=== PATIENT | male | born 1930 | race Hispanic/Latino ===

== ENCOUNTER 2017-05-26 01:35 | Inpatient (IN) | payer MEDICARE ==
--- NOTE | 2017-05-26 01:43 | C.PDOC ---
Time Seen by Provider: 05/26/17 01:42 Chief Complaint (Nursing): Weakness/Neurological Deficit Past Medical History - Medical History PMH: Cardia Arrhythmia Denies: Depression - [facility] Procedures CONTR CEREBR ARTERIOGRAM (10/14/03) INJECT/INFUSE NEC (12/04/12) MAGNETIC RESONANCE IMAGING OF BRAIN AND BRAIN STEM (10/14/03) NEBULIZER THERAPY (12/04/12) - Social History Hx Alcohol Use: Yes (drinks beer) Hx Substance Use: No Disposition Counseled Patient/Family Regarding: Studies Performed, Diagnosis - Disposition Referrals: Jean Carlos Talavera DO [Primary Care Provider] - Disposition Time: 01:43
--- NOTE | 2017-05-26 01:43 | C.PDOC ---
History Of Present Illness brought from CT for change in mental status. Some time around 11 pm , they've noticed that pt is more confused than baseline and not moving right side. THe NH denied any fall or trauma. Ini the Ed pt moves right foot/leg, but not right arm Time Seen by Provider: 05/26/17 01:42 Chief Complaint (Nursing): Weakness/Neurological Deficit History Per: EMS History/Exam Limitations: clinical condition Onset/Duration Of Symptoms: Hrs (4) Current Symptoms Are (Timing): Still Present Severity: Moderate Pain Scale Rating Of: 4 Past Medical History Reviewed: Historical Data, Nursing Documentation, Vital Signs Vital Signs: Last Vital Signs Temp 98.3 F 05/26/17 01:42 Pulse 97 H 05/26/17 02:27 Resp 8 L 05/26/17 02:27 BP 108/77 05/26/17 02:27 Pulse Ox 94 L 05/26/17 02:51 - Medical History PMH: Cardia Arrhythmia Denies: Depression - [facility] Procedures CONTR CEREBR ARTERIOGRAM (10/14/03) INJECT/INFUSE NEC (12/04/12) MAGNETIC RESONANCE IMAGING OF BRAIN AND BRAIN STEM (10/14/03) NEBULIZER THERAPY (12/04/12) Family History: States: No Known Family Hx - Social History Hx Alcohol Use: Yes (drinks beer) Hx Substance Use: No Review Of Systems Review Of Systems: ROS cannot be obtained secondary to pt's inabilty to answer questions. Physical Exam - Physical Exam Appears: Non-toxic, No Acute Distress Skin: Warm, Dry Head: Normacephalic Eye(s): bilateral: Other (blind) Oral Mucosa: Moist Neck: Supple Chest: Symmetrical Cardiovascular: Rhythm Regular Respiratory: No Rales, No Rhonchi, No Wheezing Gastrointestinal/Abdominal: Soft, No Tenderness, No Distention Back: Normal Inspection Extremity: Normal ROM Extremity: Bilateral: Atraumatic, Normal Color And Temperature Pulses: Left Dorsalis Pedis: Normal, Right Dorsalis Pedis: Normal Neurological/Psych: Slow To Respond With Command, Other (right arm paralysis) Disoriented To: Place, Time Gait: Unable To Assess ED Course And Treatment - Laboratory Results Result Diagrams: 05/26/17 02:06 05/26/17 02:06 ECG: Interpreted By Me, Viewed By Me ECG Rhythm: Sinus Rhythm (101), R BBB O2 Sat by Pulse Oximetry: 94 Pulse Ox Interpretation: Normal - Radiology CXR: Interpreted by Me, Viewed By Me Progress Note: 2:30 pt now moving his right arm Critical Care Time - Critical Care Note Total Time (in mins): 30 Documented critical care: time excludes all time spent performing seperately billable procedures. NIHSS Stroke Scale - Date/Time Evaluation Performed Date Performed: 05/26/17 Time Performed: 01:44 When Was NIHSS Performed: Baseline - How Severe is the Stroke Level of Consciousness: 0=Alert LOC to Questions: 0=Both comments correct LOC to commands: 0=Obeys both correctly Best Gaze: 1=Partial gaze palsy Visual: 0=No visual loss (pt blind) Facial: 0=Normal Motor Arm - Left: 0=No drift Motor Arm - Right: 3=No effort against gravity (falls immediately) Motor Leg - Left: 0=No drift Motor Leg - Right: 1=Drift before 5 sec Limb Ataxia: 0=Absent Sensory: 0=Normal Best Language: 1=Mild to moderate aphasia Dysarthia: 1=Mild to moderate slurring (unchanged) Extinction & Inattention (Neglect): 0=Normal, no object Score: 7 rTPA Inclusion/Exclusion - Refusal of Treatment Patient Refused Treatment: No - Inclusion Criteria for Altepase Patient is 18 years or Older: Yes The Clinical Diagnosis of Ischemic Stroke That is Causing a Potentially Disabling Neurological Deficit: Yes Time of Onset is Well Established to be Less Than 270 Minute Before Treatment Would Begin: No Risk/Benefit Discussed With Patient/Family Member Present: No - Exclusion Criteria for Altepase Uncontrolled Hypertension at Time of Treatment (Systolic BP above 185 or Diastolic BP above 110 mmHg): No Active Internal Bleeding: No Known Bleeding Diathesis Including but Not Limited to: Platelets Below 100,000/ mm,PTT Above 40 sec After Heparin Use, Current Use of Oral Anitcoagulant With INR Greater Than 1.7 or PT Greater Than 15 secs: No Evidence of an Intracranial Hemorrhage: No Evidence of Major Acute Infarct With Signs Greater Than 1/3 MCA Territory: No Suspicion of Subarachnoid Hemorrhage on Pretreatment Evaluation Even if CT Head Negative For Hemorrhage: No - Warning to TPA With Conditions Condition: Rapid Improvement Disposition Discussed With : Jean Carlos Talavera Comment: accepted the pt on his service and took over the care at 3AM Doctor Will See Patient In The: Hospital Counseled Patient/Family Regarding: Studies Performed, Diagnosis - Disposition Referrals: Jean Carlos Talavera DO [Primary Care Provider] - Disposition: HOSPITALIZED Disposition Time: 01:43 Condition: GUARDED Forms: [facility] (Estonian) - Clinical Impression Clinical Impression: TIA (transient ischemic attack) Decision To Admit - Pt Status Changed To: Hospital Disposition Of: Inpatient - Admit Certification Admit to Inpatient:: After my assessment, the patient will require hospitalization for at least two midnights. This is because of the severity of symptoms shown, intensity of services needed, and/or the medical risk in this patient being treated as an outpatient. - InPatient: Physician Admission Certification: I certify that this patient requires 2 or more midnights of care for the following reason:: After my assessment, the patient will require hospitalization for at least two midnights. This is because of the severity of symptoms shown, intensity of services needed, and/or the medical risk in this patient being treated as an outpatient. - . Bed Request Type: Telemetry Admitting Physician: Jean Carlos Talavera Patient Diagnosis: TIA (transient ischemic attack)
[2017-05-26 01:57] VITALS: BMI 22.0
--- NOTE | 2017-05-26 02:01 | CT ---
EXAM: CT Head Without Intravenous Contrast CLINICAL HISTORY: 87 years old, male; Signs and symptoms; Alteration of consciousness; Additional info: Code stroke TECHNIQUE: Axial computed tomography images of the head/brain without intravenous contrast. All CT scans at this facility use one or more dose reduction techniques, viz.: automated exposure control; ma/kV adjustment per patient size (including targeted exams where dose is matched to indication; i.e. head); or iterative reconstruction technique. COMPARISON: No relevant prior studies available. FINDINGS: Brain: Moderate atrophy. No intracranial hemorrhage. No mass. Few scattered foci of decreased attenuation within periventricular/subcortical white matter. No definite edema. Ventricles: No hydrocephalus. Bones/joints: No acute fracture. Soft tissues: Unremarkable. Vasculature: Atherosclerotic disease of intracranial arteries. Sinuses: No acute sinusitis. Mastoid air cells: Probable postsurgical changes of left mastoid. No mastoid effusion. Orbits: Unremarkable as visualized. IMPRESSION: 1. Nonspecific white matter changes. Acute infarction may be CT occult within first 24 hours. If a focal deficit persists, consider followup CT or MRI for further evaluation. 2. Incidental/non-acute findings are described above.
[2017-05-26 02:10] LABS: BASO % 0.2 % (0.0-2.0); EOS % 0.1 % (0.0-4.0); HEMOGLOBIN 15.6 g/dL (12.0-18.0); LYMPH # 0.8 K/uL (1.0-4.3); LYMPH % 4.9 % (20.0-40.0); MEAN CELL VOLUME 96.2 fL (80.0-94.0); MEAN CORPUSCULAR HEMOGLOBIN 33.1 pg (27.0-31.0); MEAN CORPUSCULAR HGB CONC 34.4 g/dL (33.0-37.0); MONO # 0.9 K/uL (0.0-0.8); MONO % 5.7 % (0.0-10.0); NEUT # 13.9 K/uL (1.8-7.0); NEUT % 89.1 % (50.0-75.0); PLATELET COUNT 281 K/uL (130-400); RBC 4.72 Mil/uL (4.40-5.90); RED CELL DISTRIBUTION WIDTH 14.4 % (11.5-14.5); WHITE BLOOD COUNT 15.6 K/uL (4.8-10.8)
[2017-05-26 02:20] LABS: INR 1.1; PROTHROMBIN TIME 11.9 SECONDS (9.7-12.2)
[2017-05-26 02:23] LABS: ALBUMIN 3.9 g/dL (3.5-5.0); ALT/SGPT 48 U/L (21-72); AST/SGOT 33 U/L (17-59); BLOOD UREA NITROGEN 23 mg/dL (9-20); CALCIUM 8.9 mg/dl (8.6-10.4); GFR AFRICAN-AMERICAN > 60; GFR NON-AFRICAN AMERICAN > 60; HDL CHOLESTEROL 59 mg/dL (30-70)
[2017-05-26 02:34] LABS: LDL CHOLESTEROL 177 mg/dL (0-129)
[2017-05-26 02:47] LABS: BANDS 1 % (0-2); LYMPHOCYTE 6 % (20-40); MONOCYTE 7 % (0-10); NEUTROPHIL 86 % (50-75); PLATELET ESTIMATE NORMAL (NORMAL); TOTAL CELLS COUNTED 100
[2017-05-26 03:26] LABS: SPERM URINE OCC /hpf; SQUAMOUS EPITHIAL < 1 /hpf (0-5); URINE BACTERIA OCC (<OCC); URINE BILIRUBIN NEGATIVE (NEGATIVE); URINE BLOOD NEGATIVE (NEGATIVE); URINE CLARITY Clear (Clear); URINE COLOR Yellow (YELLOW); URINE GLUCOSE (UA) NORMAL (Normal); URINE LEUKOCYTE ESTERASE NEG Leu/uL (Negative); URINE NITRATE NEGATIVE (NEGATIVE); URINE PROTEIN NEGATIVE (NEGATIVE); URINE UROBILINOGEN NORMAL mg/dL (0.2-1.0)
[2017-05-26 08:34] LABS: BASO % 0.2 % (0.0-2.0); EOS % 0.1 % (0.0-4.0); HEMOGLOBIN 15.5 g/dL (12.0-18.0); LYMPH # 1.1 K/uL (1.0-4.3); LYMPH % 8.4 % (20.0-40.0); MEAN CELL VOLUME 97.5 fL (80.0-94.0); MEAN CORPUSCULAR HEMOGLOBIN 33.1 pg (27.0-31.0); MEAN CORPUSCULAR HGB CONC 33.9 g/dL (33.0-37.0); MEAN PLATELET VOLUME 8.6 fL (7.2-11.7); MONO # 1.1 K/uL (0.0-0.8); MONO % 8.4 % (0.0-10.0); NEUT % 82.9 % (50.0-75.0); PLATELET COUNT 286 K/uL (130-400); RBC 4.68 Mil/uL (4.40-5.90); RED CELL DISTRIBUTION WIDTH 14.8 % (11.5-14.5); WHITE BLOOD COUNT 13.3 K/uL (4.8-10.8)
[2017-05-26 08:38] LABS: ALBUMIN 3.8 g/dL (3.5-5.0); ALT/SGPT 42 U/L (21-72); AST/SGOT 29 U/L (17-59); BLOOD UREA NITROGEN 22 mg/dL (9-20); CALCIUM 8.2 mg/dl (8.6-10.4); GFR AFRICAN-AMERICAN > 60; GFR NON-AFRICAN AMERICAN > 60
[2017-05-26] MEDS ORDERED: Dextrose 5%/0.45% NS 1,000 ML IV SCH (09:30)
[2017-05-26 09:42] LABS: LYMPHOCYTE 6 % (20-40); MONOCYTE 6 % (0-10); NEUTROPHIL 87 % (50-75); PLATELET ESTIMATE NORMAL (NORMAL); REACTIVE LYMPHOCYTES 1 % (0-0); TOTAL CELLS COUNTED 100
--- NOTE | 2017-05-26 09:54 | RAD ---
HISTORY: CVA COMPARISON: No prior. FINDINGS: LUNGS: The lungs are well inflated and clear. PLEURA: No significant pleural effusion identified, no pneumothorax apparent. CARDIOVASCULAR: Normal. OSSEOUS STRUCTURES: No significant abnormalities. VISUALIZED UPPER ABDOMEN: Normal. OTHER FINDINGS: None. IMPRESSION: No active pulmonary disease.
[2017-05-26] MEDS ORDERED: Pantoprazole 40 mg EC Tab PO SCH (10:00)
[2017-05-26] MEDS ORDERED: Enoxaparin 40 mg Syringe SC SCH (10:00)
[2017-05-26] MEDS ORDERED: Pneumococcal 23-Valent Vaccine IM ONE (10:00)
[2017-05-26] MEDS: Sodium Chloride 0.45% 1,000 ML IV SCH (14:38)
--- NOTE | 2017-05-26 14:38 | CP.PCM.CON ---
History of Present Illness - History of Present Illness History of Present Illness: COSULT DICTATED [place] HEMISPHERIC DYSFUNCTION - LEFT MCA STROKE Vs BLEED NEEDS REPEAT CAT MRI/CAROTID/EEG/ECHO/VERÓNICA ASA/STATIN/ARB NS IV KEEP MAP 90-100 HEAD END ELEVATION NGT DVT PROPHYLAXIS CARDIO TO SEE Past Patient History - Infectious Disease Hx of Infectious Diseases: None - Tetanus Immunizations Tetanus Immunization: Unknown - Past Social History Smoking Status: Unknown If Ever Smoked - CARDIAC Hx Cardiac Disorders: Yes - PULMONARY Hx Respiratory Disorders: No - NEUROLOGICAL Other/Comment: syncopal episode 22 yrs ago - HEENT 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", right ear hearing loss - RENAL Hx Chronic Kidney Disease: No - ENDOCRINE/METABOLIC Hx Endocrine Disorders: No - HEMATOLOGICAL/ONCOLOGICAL Hx Blood Disorders: No Hx Cancer: (denies prostate ca) - INTEGUMENTARY Hx Dermatological Problems: No - MUSCULOSKELETAL/RHEUMATOLOGICAL Hx Falls: Yes - GASTROINTESTINAL Other/Comment: esophagitis, gastritis, gas, uses stool softeners - GENITOURINARY/GYNECOLOGICAL Hx Prostate Problems: Yes (denies ca, had prostate sx 2 months ago) Other/Comment: dribbling since prostate sx when coughing or laughing - PSYCHIATRIC Hx Depression: No Hx Substance Use: No - SURGICAL HISTORY Hx Surgeries: No Other/Comment: left hip replacement 2000 - ANESTHESIA Hx Anesthesia: Yes Hx Anesthesia Reactions: No Meds Allergies/Adverse Reactions: Allergies Allergy/AdvReac Type Severity Reaction Status Date / Time No Known Allergies Allergy Verified 05/26/17 01:41 - Medications Medications: Current Medications Aspirin (Aspirin Chewable) 81 mg PO DAILY [facility] Last Admin: 05/26/17 10:05 Dose: Not Given Docusate Sodium (Colace) 100 mg PO DAILY [facility] Last Admin: 05/26/17 10:05 Dose: Not Given Enoxaparin Sodium (Lovenox) 40 mg SC DAILY [facility] Last Admin: 05/26/17 10:17 Dose: 40 mg Enoxaparin Sodium (Lovenox) 30 mg SC Q12 [facility] Ceftriaxone Sodium 1 gm/ (Dextrose) 100 mls @ 50 mls/30 min IVPB Q24H [facility] Sodium Chloride (Sodium Chloride 0.45%) 1,000 mls @ 72 mls/hr IV .[id number] [facility] Losartan Potassium (Cozaar) 25 mg PO DAILY [facility] Pantoprazole Sodium (Protonix Ec Tab) 40 mg PO DAILY [facility] Last Admin: 05/26/17 10:06 Dose: Not Given Rosuvastatin Calcium (Crestor) 10 mg PO [facility] Results - Vital Signs Recent Vital Signs: Last Vital Signs Temp 97.6 F 05/26/17 07:45 Pulse 89 05/26/17 07:45 Resp 18 05/26/17 07:45 BP 134/83 05/26/17 07:45 Pulse Ox 95 05/26/17 07:45 - Labs Result Diagrams: 05/26/17 08:15 05/26/17 08:15 Labs: Laboratory Results - last 24 hr 05/26/17 05/26/17 05/26/17 01:39 01:58 02:06 WBC 15.6 H RBC 4.72 Hgb 15.6 Hct 45.4 MCV 96.2 H MCH 33.1 H MCHC 34.4 RDW 14.4 Plt Count 281 MPV 8.0 Neut % (Auto) 89.1 H Lymph % (Auto) 4.9 L Collin % (Auto) 5.7 Eos % (Auto) 0.1 Baso % (Auto) 0.2 Neut # 13.9 H Lymph # 0.8 L Collin # 0.9 H Eos # 0.0 Baso # 0.0 Neutrophils % (Manual) 86 H Band Neutrophils % 1 Lymphocytes % (Manual) 6 L Reactive Lymphs % Monocytes % (Manual) 7 Platelet Estimate Normal RBC Morphology PT INR APTT Sodium Potassium Chloride Carbon Dioxide Anion Gap BUN Creatinine Est GFR ( Amer) Est GFR (Non-Af Amer) POC Glucose (mg/dL) 149 H Random Glucose Hemoglobin A1c Calcium Total Bilirubin AST ALT Alkaline Phosphatase Troponin I Total Protein Albumin Globulin Albumin/Globulin Ratio Triglycerides Cholesterol LDL Cholesterol Direct HDL Cholesterol Urine Color Yellow Urine Clarity Clear Urine pH 5.0 Ur Specific Cory 1.020 Urine Protein Negative Urine Glucose (UA) Normal Urine Ketones Negative Urine Blood Negative Urine Nitrate Negative Urine Bilirubin Negative Urine Urobilinogen Normal Ur Leukocyte Esterase Neg Urine WBC (Auto) 2 Urine RBC (Auto) 4 H Ur Squamous Epith Cells < 1 Urine Bacteria Occ H Urine Sperm (Auto) Occ Blood Type Antibody Screen 05/26/17 05/26/17 05/26/17 02:06 02:06 02:06 WBC RBC Hgb Hct MCV MCH MCHC RDW Plt Count MPV Neut % (Auto) Lymph % (Auto) Collin % (Auto) Eos % (Auto) Baso % (Auto) Neut # Lymph # Collin # Eos # Baso # Neutrophils % (Manual) Band Neutrophils % Lymphocytes % (Manual) Reactive Lymphs % Monocytes % (Manual) Platelet Estimate RBC Morphology PT 11.9 INR 1.1 APTT 33 Sodium 132 Potassium 4.2 Chloride 98 Carbon Dioxide 26 Anion Gap 12 BUN 23 H Creatinine 1.1 Est GFR ( Amer) > 60 Est GFR (Non-Af Amer) > 60 POC Glucose (mg/dL) Random Glucose 140 H Hemoglobin A1c Calcium 8.9 Total Bilirubin 0.5 AST 33 ALT 48 Alkaline Phosphatase 137 H D Troponin I < 0.0120 Total Protein 7.9 Albumin 3.9 Globulin 3.9 Albumin/Globulin Ratio 1.0 Triglycerides 88 Cholesterol 253 H LDL Cholesterol Direct 177 H HDL Cholesterol 59 Urine Color Urine Clarity Urine pH Ur Specific Cory Urine Protein Urine Glucose (UA) Urine Ketones Urine Blood Urine Nitrate Urine Bilirubin Urine Urobilinogen Ur Leukocyte Esterase Urine WBC (Auto) Urine RBC (Auto) Ur Squamous Epith Cells Urine Bacteria Urine Sperm (Auto) Blood Type B POSITIVE Antibody Screen Negative 05/26/17 05/26/17 05/26/17 02:07 08:15 08:15 WBC 13.3 H RBC 4.68 Hgb 15.5 Hct 45.6 MCV 97.5 H MCH 33.1 H MCHC 33.9 RDW 14.8 H Plt Count 286 MPV 8.6 Neut % (Auto) 82.9 H Lymph % (Auto) 8.4 L Collin % (Auto) 8.4 Eos % (Auto) 0.1 Baso % (Auto) 0.2 Neut # 11.0 H Lymph # 1.1 Collin # 1.1 H Eos # 0.0 Baso # 0.0 Neutrophils % (Manual) 87 H Band Neutrophils % Lymphocytes % (Manual) 6 L Reactive Lymphs % 1 H Monocytes % (Manual) 6 Platelet Estimate Normal RBC Morphology Normal PT INR APTT Sodium 133 Potassium 3.9 Chloride 97 L Carbon Dioxide 25 Anion Gap 14 BUN 22 H Creatinine 1.1 Est GFR ( Amer) > 60 Est GFR (Non-Af Amer) > 60 POC Glucose (mg/dL) Random Glucose 122 H Hemoglobin A1c 5.8 Calcium 8.2 L Total Bilirubin 0.4 AST 29 ALT 42 Alkaline Phosphatase 121 Troponin I Total Protein 7.5 Albumin 3.8 Globulin 3.7 Albumin/Globulin Ratio 1.0 Triglycerides Cholesterol LDL Cholesterol Direct HDL Cholesterol Urine Color Urine Clarity Urine pH Ur Specific Cory Urine Protein Urine Glucose (UA) Urine Ketones Urine Blood Urine Nitrate Urine Bilirubin Urine Urobilinogen Ur Leukocyte Esterase Urine WBC (Auto) Urine RBC (Auto) Ur Squamous Epith Cells Urine Bacteria Urine Sperm (Auto) Blood Type Antibody Screen
--- NOTE | 2017-05-26 14:49 | CT ---
PROCEDURE: CT HEAD WITHOUT CONTRAST. HISTORY: left MCA stroke - ?? bleed COMPARISON: None available. TECHNIQUE: Axial computed tomography images were obtained through the head/brain without intravenous contrast. Radiation dose: Total exam DLP = 1001.34 mGy-cm. This CT exam was performed using one or more of the following dose reduction techniques: Automated exposure control, adjustment of the mA and/or kV according to patient size, and/or use of iterative reconstruction technique. FINDINGS: HEMORRHAGE: No intracranial hemorrhage. BRAIN: There is asymmetric low attenuation in the left bunn radiata, basal ganglia, anterior limb of internal capsule and external capsule. There are moderate chronic microangiopathic changes. There is no mass, mass effect or abnormal extra-axial fluid collection. There are coarse atherosclerotic calcifications in the cavernous carotid arteries. VENTRICLES: There is moderate age-related global parenchymal volume loss and proportionate enlargement of the ventricles and cortical sulci. CALVARIUM: The skull base and calvarium are normal. PARANASAL SINUSES: Predominantly clear. MASTOID AIR CELLS: The right mastoid air cells are clear. Status post left mastoidectomy. There is cerumen in both external auditory canals. OTHER FINDINGS: None. IMPRESSION: Acute left MCA territory infarction involving the bunn radiata, basal ganglia, anterior limb of internal capsule and external capsule. No evidence of intracranial hemorrhage. Critical findings were discussed with neurologist Dr. Ben Em on 05/26/2017 at 2:45 p.m.
[2017-05-26] MEDS ORDERED: Enalaprilat 2.5 MG/2 ML IV ONE (17:32)
[2017-05-26 17:57] LABS: FREE T4 1.52 ng/dL (0.78-2.19)
[2017-05-26 18:47] LABS: FOLATE 11.3 ng/mL
--- NOTE | 2017-05-26 20:56 | HP ---
HISTORY OF PRESENT ILLNESS: He was sent in from [facility] with new onset right-sided weakness and flaccidity. He is sent to the emergency room here. He is an 87-year-old man I have seen at [facility] for the past few weeks for physical therapy. He is a carey of the [facility] later [facility]. He is an 87-year-old white male with new onset right-sided weakness and flaccidity and he stopped talking. He is nonverbal and is weak. PAST MEDICAL HISTORY: He has a history of scleroderma, he is blind, GERD, and for the most part he is bedridden. SOCIAL HISTORY: He still drinks alcohol. He does not smoke. No substance abuse. FAMILY HISTORY: No known family history. REVIEW OF SYSTEMS: I cannot obtain review of system as he is nonverbal, although I feel like he is trying to talk. PHYSICAL EXAMINATION: VITAL SIGNS: He has 97.6 temperature, 89 pulse, 134/83 blood pressure, 18 respiratory rate, 95% O2 sat on room air. HEENT: His head is atraumatic and normocephalic. He is alert. His eyes are open. He is blind. He is just nonverbal. Mouth is dry. SKIN: Warm and dry. NECK: Supple. HEART: Regular rate. LUNGS: Decreased breath sounds, but clear to auscultation. ABDOMEN: Soft and nontender. Positive bowel sounds. EXTREMITIES: The right side is flaccid. He does have a history of cellulitis and ulcers of the both legs that are much improved with little remnants of the ulcers that are left in his extremities. He has got right arm paralysis, now he cannot move the right leg. LABORATORY DATA: He has a 15.6 white count, 15.6 hemoglobin, 45.4 hematocrit with 281 platelets. Sodium 132, potassium 4.2, BUN 23, creatinine 1.1, sugar is 140. Heart is regular rhythm at 101, right bundle branch block. Chest x-ray is pending. He comes in with most probable stroke, right-sided weakness, nonverbal. He also has a 15,000 white count. He is on Rocephin. The urine with occasional bacteria. White count went up to 15.6 from 13.3. He is here for elevated white count, stroke, right-sided weakness. We will have a consult with Neurology. He is on ceftriaxone, IV fluids. We are awaiting speech evaluation, physical therapy. We will watch him very closely. This is a history and physical on Jc Rosales who has a new onset stroke, right-sided weakness, waiting another CAT scan probably tomorrow. I am also going to get the MRI. Jean Carlos Talavera DO
[2017-05-26] MEDS: Enoxaparin 30 mg Syringe SC SCH (21:08)
--- NOTE | 2017-05-26 21:28 | CP.PCM.CON ---
History of Present Illness - History of Present Illness History of Present Illness: 87 yo male with h/o dementia, resident in [place], presents to with altered mental status from baseline and right sided hemiplegia. Patient is unable to provide much history, information obtained from chart. Admission CT head showed an acute left MCA stroke. NSR on EKG, but telemtery shows PAF. 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", right ear hearing loss - RENAL Hx Chronic Kidney Disease: No - ENDOCRINE/METABOLIC Hx Endocrine Disorders: No - HEMATOLOGICAL/ONCOLOGICAL Hx Blood Disorders: No Hx Cancer: (denies prostate ca) - INTEGUMENTARY Hx Dermatological Problems: No - MUSCULOSKELETAL/RHEUMATOLOGICAL Hx Falls: Yes - GASTROINTESTINAL Other/Comment: esophagitis, gastritis, gas, uses stool softeners - GENITOURINARY/GYNECOLOGICAL Hx Prostate Problems: Yes (denies ca, had prostate sx 2 months ago) Other/Comment: dribbling since prostate sx when coughing or laughing - PSYCHIATRIC Hx Depression: No Hx Substance Use: No - SURGICAL HISTORY Hx Surgeries: No Other/Comment: left hip replacement 2000 - ANESTHESIA Hx Anesthesia: Yes Hx Anesthesia Reactions: No Meds Allergies/Adverse Reactions: Allergies Allergy/AdvReac Type Severity Reaction Status Date / Time No Known Allergies Allergy Verified 05/26/17 01:41 - Medications Medications: Current Medications Aspirin (Aspirin Chewable) 81 mg PO DAILY [facility] Last Admin: 05/26/17 10:05 Dose: Not Given Docusate Sodium (Colace) 100 mg PO DAILY [facility] Last Admin: 05/26/17 10:05 Dose: Not Given Enoxaparin Sodium (Lovenox) 40 mg SC DAILY [facility] Last Admin: 05/26/17 10:17 Dose: 40 mg Enoxaparin Sodium (Lovenox) 30 mg SC Q12 [facility] Last Admin: 05/26/17 21:08 Dose: 30 mg Ceftriaxone Sodium 1 gm/ (Dextrose) 100 mls @ 50 mls/30 min IVPB Q24H [facility] Sodium Chloride (Sodium Chloride 0.45%) 1,000 mls @ 72 mls/hr IV .[id number] [facility] Last Admin: 05/26/17 14:38 Dose: 72 mls/hr Losartan Potassium (Cozaar) 25 mg PO DAILY [facility] Pantoprazole Sodium (Protonix Ec Tab) 40 mg PO DAILY [facility] Last Admin: 05/26/17 10:06 Dose: Not Given Rosuvastatin Calcium (Crestor) 10 mg PO HS STA Stop: 05/26/17 21:22 Rosuvastatin Calcium (Crestor) 20 mg PO HS [facility] Physical Exam - Constitutional Appears: No Acute Distress - Head Exam Head Exam: ATRAUMATIC, NORMOCEPHALIC - Eye Exam Pupil Exam: PERRL - Respiratory Exam Respiratory Exam: Clear to Auscultation Bilateral, NORMAL BREATHING PATTERN - Cardiovascular Exam Cardiovascular Exam: REGULAR RHYTHM, +S1, +S2. absent: JVD, Systolic Murmur - GI/Abdominal Exam GI & Abdominal Exam: Soft. absent: Tenderness - Neurological Exam Additional comments: Aphasic, right hemiplegia Results - Vital Signs Recent Vital Signs: Last Vital Signs Temp 97.8 F 05/26/17 15:15 Pulse 80 05/26/17 15:47 Resp 18 05/26/17 15:15 BP 166/95 H 05/26/17 17:46 Pulse Ox 97 05/26/17 15:15 - Labs Result Diagrams: 05/26/17 08:15 05/26/17 08:15 Labs: Laboratory Results - last 24 hr 05/26/17 05/26/17 05/26/17 01:39 01:58 02:06 WBC 15.6 H RBC 4.72 Hgb 15.6 Hct 45.4 MCV 96.2 H MCH 33.1 H MCHC 34.4 RDW 14.4 Plt Count 281 MPV 8.0 Neut % (Auto) 89.1 H Lymph % (Auto) 4.9 L Iron % (Auto) 5.7 Eos % (Auto) 0.1 Baso % (Auto) 0.2 Neut # 13.9 H Lymph # 0.8 L Iron # 0.9 H Eos # 0.0 Baso # 0.0 Neutrophils % (Manual) 86 H Band Neutrophils % 1 Lymphocytes % (Manual) 6 L Reactive Lymphs % Monocytes % (Manual) 7 Platelet Estimate Normal RBC Morphology PT INR APTT Sodium Potassium Chloride Carbon Dioxide Anion Gap BUN Creatinine Est GFR ( Amer) Est GFR (Non-Af Amer) POC Glucose (mg/dL) 149 H Random Glucose Hemoglobin A1c Calcium Total Bilirubin AST ALT Alkaline Phosphatase Troponin I Total Protein Albumin Globulin Albumin/Globulin Ratio Triglycerides Cholesterol LDL Cholesterol Direct HDL Cholesterol Vitamin B12 Folate Free T4 TSH 3rd Generation Urine Color Yellow Urine Clarity Clear Urine pH 5.0 Ur Specific [place] 1.020 Urine Protein Negative Urine Glucose (UA) Normal Urine Ketones Negative Urine Blood Negative Urine Nitrate Negative Urine Bilirubin Negative Urine Urobilinogen Normal Ur Leukocyte Esterase Neg Urine WBC (Auto) 2 Urine RBC (Auto) 4 H Ur Squamous Epith Cells < 1 Urine Bacteria Occ H Urine Sperm (Auto) Occ RPR Blood Type Antibody Screen 05/26/17 05/26/17 05/26/17 02:06 02:06 02:06 WBC RBC Hgb Hct MCV MCH MCHC RDW Plt Count MPV Neut % (Auto) Lymph % (Auto) Iron % (Auto) Eos % (Auto) Baso % (Auto) Neut # Lymph # Iron # Eos # Baso # Neutrophils % (Manual) Band Neutrophils % Lymphocytes % (Manual) Reactive Lymphs % Monocytes % (Manual) Platelet Estimate RBC Morphology PT 11.9 INR 1.1 APTT 33 Sodium 132 Potassium 4.2 Chloride 98 Carbon Dioxide 26 Anion Gap 12 BUN 23 H Creatinine 1.1 Est GFR ( Amer) > 60 Est GFR (Non-Af Amer) > 60 POC Glucose (mg/dL) Random Glucose 140 H Hemoglobin A1c Calcium 8.9 Total Bilirubin 0.5 AST 33 ALT 48 Alkaline Phosphatase 137 H D Troponin I < 0.0120 Total Protein 7.9 Albumin 3.9 Globulin 3.9 Albumin/Globulin Ratio 1.0 Triglycerides 88 Cholesterol 253 H LDL Cholesterol Direct 177 H HDL Cholesterol 59 Vitamin B12 Folate Free T4 TSH 3rd Generation Urine Color Urine Clarity Urine pH Ur Specific [place] Urine Protein Urine Glucose (UA) Urine Ketones Urine Blood Urine Nitrate Urine Bilirubin Urine Urobilinogen Ur Leukocyte Esterase Urine WBC (Auto) Urine RBC (Auto) Ur Squamous Epith Cells Urine Bacteria Urine Sperm (Auto) RPR Blood Type B POSITIVE Antibody Screen Negative 05/26/17 05/26/17 05/26/17 02:07 08:15 08:15 WBC 13.3 H RBC 4.68 Hgb 15.5 Hct 45.6 MCV 97.5 H MCH 33.1 H MCHC 33.9 RDW 14.8 H Plt Count 286 MPV 8.6 Neut % (Auto) 82.9 H Lymph % (Auto) 8.4 L Iron % (Auto) 8.4 Eos % (Auto) 0.1 Baso % (Auto) 0.2 Neut # 11.0 H Lymph # 1.1 Iron # 1.1 H Eos # 0.0 Baso # 0.0 Neutrophils % (Manual) 87 H Band Neutrophils % Lymphocytes % (Manual) 6 L Reactive Lymphs % 1 H Monocytes % (Manual) 6 Platelet Estimate Normal RBC Morphology Normal PT INR APTT Sodium 133 Potassium 3.9 Chloride 97 L Carbon Dioxide 25 Anion Gap 14 BUN 22 H Creatinine 1.1 Est GFR ( Amer) > 60 Est GFR (Non-Af Amer) > 60 POC Glucose (mg/dL) Random Glucose 122 H Hemoglobin A1c 5.8 Calcium 8.2 L Total Bilirubin 0.4 AST 29 ALT 42 Alkaline Phosphatase 121 Troponin I Total Protein 7.5 Albumin 3.8 Globulin 3.7 Albumin/Globulin Ratio 1.0 Triglycerides Cholesterol LDL Cholesterol Direct HDL Cholesterol Vitamin B12 Folate Free T4 TSH 3rd Generation Urine Color Urine Clarity Urine pH Ur Specific [place] Urine Protein Urine Glucose (UA) Urine Ketones Urine Blood Urine Nitrate Urine Bilirubin Urine Urobilinogen Ur Leukocyte Esterase Urine WBC (Auto) Urine RBC (Auto) Ur Squamous Epith Cells Urine Bacteria Urine Sperm (Auto) RPR Blood Type Antibody Screen 05/26/17 05/26/17 05/26/17 16:11 17:23 17:23 WBC RBC Hgb Hct MCV MCH MCHC RDW Plt Count MPV Neut % (Auto) Lymph % (Auto) Iron % (Auto) Eos % (Auto) Baso % (Auto) Neut # Lymph # Iron # Eos # Baso # Neutrophils % (Manual) Band Neutrophils % Lymphocytes % (Manual) Reactive Lymphs % Monocytes % (Manual) Platelet Estimate RBC Morphology PT INR APTT Sodium Potassium Chloride Carbon Dioxide Anion Gap BUN Creatinine Est GFR ( Amer) Est GFR (Non-Af Amer) POC Glucose (mg/dL) 104 Random Glucose Hemoglobin A1c 5.8 Calcium Total Bilirubin AST ALT Alkaline Phosphatase Troponin I Total Protein Albumin Globulin Albumin/Globulin Ratio Triglycerides Cholesterol LDL Cholesterol Direct HDL Cholesterol Vitamin B12 695 Folate 11.3 Free T4 TSH 3rd Generation Urine Color Urine Clarity Urine pH Ur Specific [place] Urine Protein Urine Glucose (UA) Urine Ketones Urine Blood Urine Nitrate Urine Bilirubin Urine Urobilinogen Ur Leukocyte Esterase Urine WBC (Auto) Urine RBC (Auto) Ur Squamous Epith Cells Urine Bacteria Urine Sperm (Auto) RPR Blood Type Antibody Screen 05/26/17 05/26/17 05/26/17 17:23 17:24 21:10 WBC RBC Hgb Hct MCV MCH MCHC RDW Plt Count MPV Neut % (Auto) Lymph % (Auto) Iron % (Auto) Eos % (Auto) Baso % (Auto) Neut # Lymph # Iron # Eos # Baso # Neutrophils % (Manual) Band Neutrophils % Lymphocytes % (Manual) Reactive Lymphs % Monocytes % (Manual) Platelet Estimate RBC Morphology PT INR APTT Sodium Potassium Chloride Carbon Dioxide Anion Gap BUN Creatinine Est GFR ( Amer) Est GFR (Non-Af Amer) POC Glucose (mg/dL) 114 H Random Glucose Hemoglobin A1c Calcium Total Bilirubin AST ALT Alkaline Phosphatase Troponin I Total Protein Albumin Globulin Albumin/Globulin Ratio Triglycerides Cholesterol LDL Cholesterol Direct HDL Cholesterol Vitamin B12 Folate Free T4 1.52 TSH 3rd Generation 1.00 Urine Color Urine Clarity Urine pH Ur Specific [place] Urine Protein Urine Glucose (UA) Urine Ketones Urine Blood Urine Nitrate Urine Bilirubin Urine Urobilinogen Ur Leukocyte Esterase Urine WBC (Auto) Urine RBC (Auto) Ur Squamous Epith Cells Urine Bacteria Urine Sperm (Auto) RPR Nonreactive Blood Type Antibody Screen - EKG Data EKG comments: EKG, my review, NSR, RBBB Telemetry as reviewed by me, paroxysmal AF with RVR Assessment & Plan (1) Acute cardioembolic stroke Assessment and Plan: In setting of PAF Permissive HTN Increase rosuvastatin to high intensity dose of 20 mg, LDL 177 F/u neurology recommendations Status: Acute (2) Paroxysmal atrial fibrillation Assessment and Plan: Currently in NSR Will need life long antoicoagulation CHADS Vasc score 3 Will defer to neurology if able to start anticoagulation now Status: Acute (3) Mixed hyperlipidemia Assessment and Plan: Will change rosuvastatin to 20 mg Status: Acute
--- NOTE | 2017-05-27 01:45 | CON ---
DATE: 05/26/2017 REASON FOR THE CONSULTATION: Right-sided weakness. CHIEF COMPLAINT: Patient was brought into [facility] last night from the shelter. Patient was transferred to the [facility] with a history of change in mental status with right-sided weakness. From neurologic point of view, I was called into evaluate him for further management. HISTORY OF PRESENT ILLNESS: Mr. Jc Rosales is an 87-year-old shelter resident brought to [facility] around 1 o'clock with a history of change in mental status with right-sided weakness. Following evaluation at the emergency room, patient did show some improvement of his right side arm. With that reason, patient did not get the t-PA and he did have a CT of the head and the patient was transferred to the floor for further management. At present, patient has been showing a left lateral gaze preponderance with facia twisted to his left side and right dense hemiplegia. Speech is globally aphasic which could not be able to understand at present. PAST MEDICAL HISTORY: Hypertension, dyslipidemia. REVIEW OF SYSTEM: Twelve-point review of systems had been reviewed. From neuro, a new weakness on his right side. MEDICATIONS: Aspirin, Colace, Lovenox, Protonix, IV fluid, D5. PHYSICAL EXAMINATION: VITAL SIGNS: Blood pressure 134/83, mean artery pressure of 100, respiratory rate 16, temperature afebrile, pulse rate 89. NECK: Supple. No carotid bruits. HEART: Sound seems to be tachycardic. EXTREMITIES: Right leg externally rotated. NEUROLOGIC EXAMINATION: Patient's left lateral gaze preponderance. Could not able to blink on to the visual threat on his right side. Pupils are sluggishly reactive to light. Facial flattening of the right side with global aphasia. Poor gag. Right dense hemiplegia. Deep tendon reflexes: Biceps, brachialis, and triceps 1+ on the right side; left side absent. Both plantars are upgoing. Sensory examination: Responded to pain symmetrically on both sides; however, somewhat decreased to response on his right side to compare with the left side. WORKUP: CT of the head shows diffuse atrophy with periventricular ischemic changes. Blood Workup: WBC 13.3, hemoglobin 15.5, hematocrit 45.6, platelet 286. PT 11.9, INR 1.1, PTT 33. Sodium 133, potassium 3.9, chloride 97, bicarbonate 25, BUN 22, GFR more than 60, glucose 122. Hemoglobin A1c 5.8. Calcium 8.2. Alkaline phosphatase 121, cholesterol 253, LDL 177, HDL 59. Urinalysis shows 4+ rbc's. CONCLUSION: Mr. Jc Rosales is presenting with dense dominant hemispheric dysfunction manifesting with the left lateral gaze preponderance, right homonymous hemianopsia, right nasolabial fold flattening, poor gag, right dense hemiplegia, all consistent with left MCA territory dysfunction. This is probably a cardioembolic event versus emboligenesis from the carotid artery stenosis. RECOMMENDATIONS: 1. Repeat CT of the head because of abrupt change in neuro status. Patient should have CT of the head to rule out bleed. 2. Patient should be on IV fluid to keep the mean artery pressure around 100. 3. We will keep the head in elevation. 4. NG feeding. Medication can be started; aspirin, statin, and angiotensin receptor blockers if the CT of the head is negative for the bleed. 5. Patient should go for MRI of the brain, carotid Doppler, echocardiogram, and possible transesophageal echocardiogram as well. Patient should be evaluated by skein straightener also. 6. Patient should get a DVT prophylaxis. Patient will be followed closely while he is in the hospital. Manav Contreras MD
[2017-05-27] MEDS ORDERED: cefTRIAXone IV 1 gm in Dextros 1 GM in Dextrose 5% In Water 50 ML IVPB SCH (03:15)
[2017-05-27] MEDS: Sodium Chloride 0.45% 1,000 ML IV SCH (03:44)
--- NOTE | 2017-05-27 06:59 | CP.PCM.CON ---
<MistiMiroslava - Last Filed: 05/27/17 11:55> History of Present Illness - History of Present Illness History of Present Illness: GI Consult note for Dr. Rojas Reason for consult: PEG placement Guardian: Tk Gonzales please note history as per charts secondary to patient condition 87 year old male PMHx HTN, dysplipidemia, scleroderma, GERD, blindness, "spinal infx" presented to ED on 05/26 for AMS and inability to move right side of body. Patient sent from [facility] where he has been for physical therapy. Head CT showed acute L MCA territory infarction involving the bunn radiata, basal ganglia, anterior limb of internal capsule and external capsule with no evidence of intracranial hemorrhage. Patient failed speech/ swallow eval and kept NPO with placement of NGTube. GI consulted for PEG placement. Overnight patient tolerated tube feeds of Lucerna 1.5 at 30cc/hr with 30cc residual. Patient follows some commands and is alert and responsive but complete ROS unobtainable secondary to global aphasia. PMHx: HTN, dysplipidemia, scleroderma, GERD, blindness, "spinal infx" PSurgHx: prostate surgery [unknown procedure] and hip replacement Meds: pls see chart ALL: NKDA FamHx: as per chart noncontributory SocialHx: as per chart denies tobacco and drug use with occasional drinking PProcedures: unable to confirm- will speak to guardian Review of Systems - Review of Systems Systems not reviewed;Unavailable: Acuity of Condition Past Patient History - Infectious Disease Hx of Infectious Diseases: None - Tetanus Immunizations Tetanus Immunization: Unknown - Past Social History Smoking Status: Unknown If Ever Smoked - CARDIAC Hx Cardiac Disorders: Yes - PULMONARY Hx Respiratory Disorders: No - NEUROLOGICAL Other/Comment: syncopal episode 22 yrs ago - HEENT 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", right ear hearing loss - RENAL Hx Chronic Kidney Disease: No - ENDOCRINE/METABOLIC Hx Endocrine Disorders: No - HEMATOLOGICAL/ONCOLOGICAL Hx Blood Disorders: No Hx Cancer: (denies prostate ca) - INTEGUMENTARY Hx Dermatological Problems: No - MUSCULOSKELETAL/RHEUMATOLOGICAL Hx Falls: Yes - GASTROINTESTINAL Other/Comment: esophagitis, gastritis, gas, uses stool softeners - GENITOURINARY/GYNECOLOGICAL Hx Prostate Problems: Yes (denies ca, had prostate sx 2 months ago) Other/Comment: dribbling since prostate sx when coughing or laughing - PSYCHIATRIC Hx Depression: No Hx Substance Use: No - SURGICAL HISTORY Hx Surgeries: No Other/Comment: left hip replacement 2000 - ANESTHESIA Hx Anesthesia: Yes Hx Anesthesia Reactions: No Meds Allergies/Adverse Reactions: Allergies Allergy/AdvReac Type Severity Reaction Status Date / Time No Known Allergies Allergy Verified 05/26/17 01:41 - Medications Medications: Current Medications Aspirin (Aspirin Chewable) 81 mg PO DAILY [facility] Last Admin: 05/26/17 10:05 Dose: Not Given Docusate Sodium (Colace) 100 mg PO DAILY [facility] Last Admin: 05/26/17 10:05 Dose: Not Given Enoxaparin Sodium (Lovenox) 30 mg SC Q12 [facility] Last Admin: 05/26/17 21:08 Dose: 30 mg Ceftriaxone Sodium 1 gm/ (Dextrose) 100 mls @ 50 mls/30 min IVPB Q24H [facility] Last Admin: 05/27/17 03:44 Dose: 50 mls/30 min Sodium Chloride (Sodium Chloride 0.45%) 1,000 mls @ 72 mls/hr IV .[id number] [facility] Last Admin: 05/27/17 03:44 Dose: 72 mls/hr Losartan Potassium (Cozaar) 25 mg PO DAILY [facility] Pantoprazole Sodium (Protonix Ec Tab) 40 mg PO DAILY [facility] Last Admin: 05/26/17 10:06 Dose: Not Given Rosuvastatin Calcium (Crestor) 20 mg PO [facility] Physical Exam - Constitutional Appears: Chronically Ill - Head Exam Head Exam: ATRAUMATIC, NORMOCEPHALIC - Eye Exam Eye Exam: absent: Conjunctival injection, Scleral icterus Additional comments: left lateral gaze - ENT Exam ENT Exam: Mucous Membranes Dry Additional comments: NGT in place with feeds at 30cc/hr - Respiratory Exam Respiratory Exam: NORMAL BREATHING PATTERN. absent: Accessory Muscle Use, Respiratory Distress - Cardiovascular Exam Cardiovascular Exam: Tachycardia - GI/Abdominal Exam GI & Abdominal Exam: Soft. absent: Distended, Firm, Guarding, Rigid, Tenderness - Extremities Exam Extremities exam: Positive for: pedal pulses present - Neurological Exam Neurological exam: Alert Additional comments: alert and responds to command [ie lifted left arm slightly when asked] aphasic - Skin Skin Exam: Dry, Intact, Warm Results - Vital Signs Recent Vital Signs: Last Vital Signs Temp 98.6 F 05/26/17 23:05 Pulse 94 H 05/26/17 23:05 Resp 20 05/26/17 23:05 BP 134/78 05/26/17 23:05 Pulse Ox 95 05/26/17 23:05 - Labs Result Diagrams: 05/27/17 07:06 05/27/17 07:06 Labs: Laboratory Results - last 24 hr 05/26/17 05/26/17 05/26/17 02:07 08:15 08:15 WBC 13.3 H RBC 4.68 Hgb 15.5 Hct 45.6 MCV 97.5 H MCH 33.1 H MCHC 33.9 RDW 14.8 H Plt Count 286 MPV 8.6 Neut % (Auto) 82.9 H Lymph % (Auto) 8.4 L [place] % (Auto) 8.4 Eos % (Auto) 0.1 Baso % (Auto) 0.2 Neut # 11.0 H Lymph # 1.1 [place] # 1.1 H Eos # 0.0 Baso # 0.0 Neutrophils % (Manual) 87 H Lymphocytes % (Manual) 6 L Reactive Lymphs % 1 H Monocytes % (Manual) 6 Platelet Estimate Normal RBC Morphology Normal Sodium 133 Potassium 3.9 Chloride 97 L Carbon Dioxide 25 Anion Gap 14 BUN 22 H Creatinine 1.1 Est GFR ( Amer) > 60 Est GFR (Non-Af Amer) > 60 POC Glucose (mg/dL) Random Glucose 122 H Hemoglobin A1c 5.8 Calcium 8.2 L Total Bilirubin 0.4 AST 29 ALT 42 Alkaline Phosphatase 121 Total Protein 7.5 Albumin 3.8 Globulin 3.7 Albumin/Globulin Ratio 1.0 Vitamin B12 Folate Free T4 TSH 3rd Generation RPR 05/26/17 05/26/17 05/26/17 16:11 17:23 17:23 WBC RBC Hgb Hct MCV MCH MCHC RDW Plt Count MPV Neut % (Auto) Lymph % (Auto) [place] % (Auto) Eos % (Auto) Baso % (Auto) Neut # Lymph # [place] # Eos # Baso # Neutrophils % (Manual) Lymphocytes % (Manual) Reactive Lymphs % Monocytes % (Manual) Platelet Estimate RBC Morphology Sodium Potassium Chloride Carbon Dioxide Anion Gap BUN Creatinine Est GFR ( Amer) Est GFR (Non-Af Amer) POC Glucose (mg/dL) 104 Random Glucose Hemoglobin A1c 5.8 Calcium Total Bilirubin AST ALT Alkaline Phosphatase Total Protein Albumin Globulin Albumin/Globulin Ratio Vitamin B12 695 Folate 11.3 Free T4 TSH 3rd Generation RPR 05/26/17 05/26/17 05/26/17 17:23 17:24 21:10 WBC RBC Hgb Hct MCV MCH MCHC RDW Plt Count MPV Neut % (Auto) Lymph % (Auto) [place] % (Auto) Eos % (Auto) Baso % (Auto) Neut # Lymph # [place] # Eos # Baso # Neutrophils % (Manual) Lymphocytes % (Manual) Reactive Lymphs % Monocytes % (Manual) Platelet Estimate RBC Morphology Sodium Potassium Chloride Carbon Dioxide Anion Gap BUN Creatinine Est GFR ( Amer) Est GFR (Non-Af Amer) POC Glucose (mg/dL) 114 H Random Glucose Hemoglobin A1c Calcium Total Bilirubin AST ALT Alkaline Phosphatase Total Protein Albumin Globulin Albumin/Globulin Ratio Vitamin B12 Folate Free T4 1.52 TSH 3rd Generation 1.00 RPR Nonreactive Assessment & Plan - Assessment and Plan (Free Text) Assessment: 7 year old male PMHx HTN, dysplipidemia, scleroderma, GERD, blindness, "spinal infx" presented to ED on 05/26 for AMS and inability to move right side of body. 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 GI consulted for PEG placement Plan: - patient on NGT feeds of Lucerna 1.5 at 30cc/hr tolerating with minimal residual of 30cc overnight - will speak to state guardianship regarding PEG placement - guardian Tk Gonzales has been contacted- awaiting to hear back - continue care as per primary as neurology and will f/u reccs GI will continue to follow Discussed with Dr. Bob Chappell PGY2 <El Rojas Y - Last Filed: 05/27/17 13:01> Meds - Medications Medications: Current Medications Aspirin (Aspirin Chewable) 81 mg PO DAILY [facility] Last Admin: 05/27/17 09:59 Dose: 81 mg Docusate Sodium (Colace) 100 mg PO DAILY [facility] Last Admin: 05/27/17 10:10 Dose: Not Given Enoxaparin Sodium (Lovenox) 30 mg SC Q12 [facility] Last Admin: 05/27/17 10:00 Dose: 30 mg Ceftriaxone Sodium 1 gm/ (Dextrose) 100 mls @ 50 mls/30 min IVPB Q24H [facility] Last Admin: 05/27/17 03:44 Dose: 50 mls/30 min Sodium Chloride (Sodium Chloride 0.9%) 1,000 mls @ 40 mls/hr IV .Q24H [facility] Last Admin: 05/27/17 10:05 Dose: 40 mls/hr Losartan Potassium (Cozaar) 25 mg PO DAILY [facility] Last Admin: 05/27/17 09:59 Dose: 25 mg Pantoprazole Sodium (Protonix Susp) 40 mg PO DAILY [facility] Last Admin: 05/27/17 09:59 Dose: 40 mg Pneumococcal Polyvalent Vaccine (Pneumovax 23 Vaccine) 0.5 ml IM .ONCE ONE Stop: 05/28/17 10:01 Rosuvastatin Calcium (Crestor) 20 mg PO [facility] Results - Vital Signs Recent Vital Signs: Last Vital Signs Temp 98.4 F 05/27/17 07:40 Pulse 92 H 05/27/17 07:40 Resp 20 05/27/17 07:40 BP 123/78 05/27/17 07:40 Pulse Ox 94 L 05/27/17 07:40 - Labs Result Diagrams: 05/27/17 07:06 05/27/17 07:06 Labs: Laboratory Results - last 24 hr 05/26/17 05/26/17 05/26/17 16:11 17:23 17:23 WBC RBC Hgb Hct MCV MCH MCHC RDW Plt Count MPV Sodium Potassium Chloride Carbon Dioxide Anion Gap BUN Creatinine Est GFR ( Amer) Est GFR (Non-Af Amer) POC Glucose (mg/dL) 104 Random Glucose Hemoglobin A1c 5.8 Calcium Total Bilirubin AST ALT Alkaline Phosphatase Total Protein Albumin Globulin Albumin/Globulin Ratio Vitamin B12 695 Folate 11.3 Free T4 TSH 3rd Generation RPR 05/26/17 05/26/17 05/26/17 17:23 17:24 21:10 WBC RBC Hgb Hct MCV MCH MCHC RDW Plt Count MPV Sodium Potassium Chloride Carbon Dioxide Anion Gap BUN Creatinine Est GFR ( Amer) Est GFR (Non-Af Amer) POC Glucose (mg/dL) 114 H Random Glucose Hemoglobin A1c Calcium Total Bilirubin AST ALT Alkaline Phosphatase Total Protein Albumin Globulin Albumin/Globulin Ratio Vitamin B12 Folate Free T4 1.52 TSH 3rd Generation 1.00 RPR Nonreactive 05/27/17 05/27/17 05/27/17 06:26 07:06 07:06 WBC 11.2 H RBC 4.33 L Hgb 14.4 Hct 42.0 MCV 96.9 H MCH 33.2 H MCHC 34.3 RDW 14.7 H Plt Count 273 MPV 8.8 Sodium 131 L Potassium 4.1 Chloride 99 Carbon Dioxide 27 Anion Gap 10 BUN 23 H Creatinine 1.1 Est GFR ( Amer) > 60 Est GFR (Non-Af Amer) > 60 POC Glucose (mg/dL) 109 Random Glucose 108 Hemoglobin A1c Calcium 8.8 Total Bilirubin 0.4 AST 31 ALT 34 Alkaline Phosphatase 110 Total Protein 7.1 Albumin 3.5 Globulin 3.6 Albumin/Globulin Ratio 1.0 Vitamin B12 Folate Free T4 TSH 3rd Generation RPR 05/27/17 11:26 WBC RBC Hgb Hct MCV MCH MCHC RDW Plt Count MPV Sodium Potassium Chloride Carbon Dioxide Anion Gap BUN Creatinine Est GFR ( Amer) Est GFR (Non-Af Amer) POC Glucose (mg/dL) 113 H Random Glucose Hemoglobin A1c Calcium Total Bilirubin AST ALT Alkaline Phosphatase Total Protein Albumin Globulin Albumin/Globulin Ratio Vitamin B12 Folate Free T4 TSH 3rd Generation RPR Attending/Attestation - Attestation I have personally seen and examined this patient.: Yes I have fully participated in the care of the patient.: Yes I have reviewed all pertinent clinical information: Yes Notes (Text): 05/27/17 12:52 I have seen and examined patient with GI fellow and medical office technician. Agree with above documentation with the following additions. In brief, this is a 87 year old male with history of HTN, scleroderma, GERD, hyperlipidemia who was sent to hospital for evaluation of altered mental status and found to have an acute CVA. GI called for possible endoscopic gastrostomy tube placement. Patient himself is not able to participate in meaningful conversation due to recent vascular event and has aphasia. Additional information was obtained via chart review and discussion with nursing staff. Patient noted to have current guardianship under state of [place]. He is able to follow simple commands and move his left extremity when asked, but otherwise there is no reported abdominal pain , nausea, vomiting, fever/chills. He is tolerating NG tube feeding without difficulty. 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 If proper consent for procedure is obtained, will tentatively plan for procedure on . In the meanwhile will continue to observe patient clinical course.
[2017-05-27 07:26] LABS: HEMOGLOBIN 14.4 g/dL (12.0-18.0); MEAN CELL VOLUME 96.9 fL (80.0-94.0); MEAN CORPUSCULAR HEMOGLOBIN 33.2 pg (27.0-31.0); MEAN CORPUSCULAR HGB CONC 34.3 g/dL (33.0-37.0); MEAN PLATELET VOLUME 8.8 fL (7.2-11.7); RBC 4.33 Mil/uL (4.40-5.90); RED CELL DISTRIBUTION WIDTH 14.7 % (11.5-14.5); WHITE BLOOD COUNT 11.2 K/uL (4.8-10.8)
--- NOTE | 2017-05-27 07:35 | RAD ---
HISTORY: NGT COMPARISON: Portable chest 05/06/2017. FINDINGS: LUNGS: No acute infiltrate bilaterally. Left hemidiaphragm again appears slightly elevated. PLEURA: No significant pleural effusion identified, no pneumothorax apparent. CARDIOVASCULAR: Normal. OSSEOUS STRUCTURES: No significant abnormalities. VISUALIZED UPPER ABDOMEN: Normal. OTHER FINDINGS: None. IMPRESSION: No acute infiltrate bilaterally. No pleural effusion or cardiomegaly. Left hemidiaphragm remains mildly elevated.
[2017-05-27 08:16] LABS: ALBUMIN 3.5 g/dL (3.5-5.0); ALT/SGPT 34 U/L (21-72); AST/SGOT 31 U/L (17-59); BLOOD UREA NITROGEN 23 mg/dL (9-20); CALCIUM 8.8 mg/dl (8.6-10.4); GFR AFRICAN-AMERICAN > 60; GFR NON-AFRICAN AMERICAN > 60
[2017-05-27] MEDS: Pantoprazole 40 mg Susp UD PO SCH (09:59)
[2017-05-27] MEDS: Enoxaparin 30 mg Syringe SC SCH ×2 (10:00→22:48)
[2017-05-27] MEDS: Sodium Chloride 0.9% 1,000 ML IV SCH (10:05)
--- NOTE | 2017-05-27 10:41 | PN ---
SUBJECTIVE: I saw Jc resting comfortably in bed. He has a NG tube in, he had IV fluids running plus IV Rocephin. He is nonverbal. His eyes open. He consult with Neurology and Cardiology anticipated, GI for possible PEG tube. MEDICATIONS: He is currently on IV fluids, aspirin, Colace, Cozaar, Crestor, Lovenox, Protonix, Rocephin. He has Vasotec IV running for elevated blood pressure. PHYSICAL EXAMINATION VITAL SIGNS: Right now it is 98.6 temperature, 94 pulse, 134/78 blood pressure, 20 respiratory rate, 95% pulse ox on room air. HEENT: His head is atraumatic and normocephalic. His eyes open. He is nonverbal, will not talk. HEART: Regular rate. LUNGS: Decreased breath sounds, but clear. ABDOMEN: Soft. EXTREMITIES: His right arm is flaccid, cannot move it. LABORATORY DATA: He had 13.3 white count yesterday, waiting for labs from today; 15.5 hemoglobin, 286,000 platelets. He had 114 blood sugar. Urine was clean. Nonreactive RPR. Waiting for labs this morning. We will check labs tomorrow. Speech pathology, swallow evaluation; said he cannot swallow. He is n.p.o. at this time. That is why I think he will need a PEG tube. We will continue . Right leg also is better healing. I think the Rocephin will help that. He is blind, he has got scleroderma and CVA with right-sided weakness. Jean Carlos Talavera DO MTDWilliam
--- NOTE | 2017-05-27 11:17 | VASCLAB ---
PROCEDURE: HISTORY: Carotid occlusion COMPARISON: None available. TECHNIQUE: Grayscale and duplex Doppler evaluation of the cervical carotid and vertebral arteries were performed. The common carotid, carotid bifurcations and cervical Internal Carotid Artery (ICA) and proximal External Carotid Artery (ECA) were evaluated. The vertebral arteries were evaluated for gross patency and flow direction. Report prepared by Macario Hardin, BS, RVT FINDINGS: RIGHT CAROTID ARTERIES: 1. Common Carotid Artery: No flow noted in the right common carotid artery. Maximum Peak Systolic velocity: 0 cm/sec: End-diastolic velocity 0 cm/sec. 2. Carotid Bifurcation: Calcific plaque formation. Maximum Peak Systolic velocity: 0 cm/sec: End-diastolic velocity 0 cm/sec. 3. Internal Carotid Artery: No flow is noted in the right internal carotid artery. plaque description: Calcific 3.1. Proximal Segment: Peak systolic velocity 0 cm/sec: End-diastolic velocity 0 cm/sec - % stenosis [place] 3.2. Middle Segment: Peak systolic velocity 0 cm/sec: End-diastolic velocity 0 cm/sec - % stenosis [place] 3.3. Distal Segment: Peak systolic velocity 0 cm/sec: End-diastolic velocity 0 cm/sec - % stenosis [place] 4. External Carotid Artery: The right external carotid artery flow direction is retrograde. Peak systolic velocity 30 cm/sec 5. ICA/CCA Ratio: LEFT CAROTID ARTERIES: 1. Common Carotid Artery: No significant focal plaque formation of the left common carotid artery. Maximum Peak Systolic velocity: 64 cm/sec: End-diastolic velocity 19 cm/sec. 2. Carotid Bifurcation: Calcific plaque formation. Maximum Peak Systolic velocity: 88 cm/sec: End-diastolic velocity 16 cm/sec. 3. Internal Carotid Artery: Severe plaque formation of the left proximal ICA which does not results in a hemodynamically significant stenosis. Plaque description: Calcific 3.1. Proximal Segment: Peak systolic velocity 61 cm/sec: End-diastolic velocity 19 cm/sec - % stenosis 0-15% 3.2. Middle Segment: Peak systolic velocity 48 cm/sec: End-diastolic velocity 25 cm/sec - % stenosis 0-15% 3.3. Distal Segment: Peak systolic velocity 51 cm/sec: End-diastolic velocity 26 cm/sec - % stenosis 0-15% 4. External Carotid Artery: No significant focal plaque formation. Peak systolic velocity 154 cm/sec 5. ICA/CCA Ratio: 1.4 VERTEBRAL ARTERIES: 1. Right Vertebral Artery: The right vertebral artery flow direction is retrograde. 2. Left Vertebral Artery: The left vertebral artery flow direction is antegrade. OTHER FINDINGS: 1. Right Brachial Blood pressure: mmHg. 2. Left Brachial Blood pressure: mmHg. IMPRESSION: RIGHT: Occlusion of the right internal carotid artery. LEFT: Duplex scan does not suggest hemodynamically significant stenosis of the left extracranial carotid arteries. KERMIT Rivers notified about the findings.
--- NOTE | 2017-05-27 15:08 | CP.PCM.PN ---
Subjective - Date & Time of Evaluation Date of Evaluation: 05/27/17 Time of Evaluation: 15:03 - Subjective Subjective: Pt is confused, mumbles. cannot answer questions Objective - Vital Signs/Intake and Output Vital Signs (last 24 hours): Temp Pulse Resp BP Pulse Ox 98.4 F 92 H 20 123/78 94 L 05/27/17 07:40 05/27/17 07:40 05/27/17 07:40 05/27/17 07:40 05/27/17 07:40 Intake and Output: 05/27/17 05/27/17 06:59 18:59 Intake Total 1410 696 Output Total 100 500 Balance 1310 196 - Medications Medications: Current Medications Aspirin (Aspirin Chewable) 81 mg PO DAILY [facility] Last Admin: 05/27/17 09:59 Dose: 81 mg Docusate Sodium (Colace) 100 mg PO DAILY [facility] Last Admin: 05/27/17 10:10 Dose: Not Given Enoxaparin Sodium (Lovenox) 30 mg SC Q12 [facility] Last Admin: 05/27/17 10:00 Dose: 30 mg Ceftriaxone Sodium 1 gm/ (Dextrose) 100 mls @ 50 mls/30 min IVPB Q24H [facility] Last Admin: 05/27/17 03:44 Dose: 50 mls/30 min Sodium Chloride (Sodium Chloride 0.9%) 1,000 mls @ 40 mls/hr IV .Q24H [facility] Last Admin: 05/27/17 10:05 Dose: 40 mls/hr Losartan Potassium (Cozaar) 25 mg PO DAILY [facility] Last Admin: 05/27/17 09:59 Dose: 25 mg Pantoprazole Sodium (Protonix Susp) 40 mg PO DAILY [facility] Last Admin: 05/27/17 09:59 Dose: 40 mg Pneumococcal Polyvalent Vaccine (Pneumovax 23 Vaccine) 0.5 ml IM .ONCE ONE Stop: 05/28/17 10:01 Rosuvastatin Calcium (Crestor) 20 mg PO [facility] - Labs Labs: 05/27/17 07:06 05/27/17 07:06 PT 11.9 SECONDS (9.7-12.2) 05/26/17 02:06 INR 1.1 05/26/17 02:06 APTT 33 SECONDS (21-34) 05/26/17 02:06 - Constitutional Appears: Older Than Stated Age, Confused, Cachectic - Head Exam Head Exam: ATRAUMATIC - Eye Exam Eye Exam: Normal appearance - ENT Exam ENT Exam: Mucous Membranes Dry - Neck Exam Neck Exam: Full ROM - Respiratory Exam Respiratory Exam: Clear to Ausculation Bilateral - Cardiovascular Exam Cardiovascular Exam: REGULAR RHYTHM - GI/Abdominal Exam GI & Abdominal Exam: Normal Bowel Sounds - Extremities Exam Extremities Exam: Full ROM, Normal Inspection - Back Exam Back Exam: NORMAL INSPECTION - Neurological Exam Neurological Exam: Awake Additional comments: Right sided hemiparesis Assessment and Plan - Assessment and Plan (Free Text) Assessment: 2. Echo reveals normal LV EF, mild 2. Occluded Right carotid not likely source of CVA 3. Pt is in NSR, but brief runs of SVT noted on tele. the runs appear regular probably a regular SVT. 4. If pt's family/guardian wish for pt to have PEG, he is cleared.
[2017-05-28] MEDS: Sodium Chloride 0.9% 1,000 ML IV SCH ×2 (03:21→14:34)
[2017-05-28 06:21] LABS: HEMOGLOBIN 13.7 g/dL (12.0-18.0); MEAN CORPUSCULAR HGB CONC 34.1 g/dL (33.0-37.0); MEAN PLATELET VOLUME 7.6 fL (7.2-11.7); RBC 4.13 Mil/uL (4.40-5.90); RED CELL DISTRIBUTION WIDTH 14.8 % (11.5-14.5); WHITE BLOOD COUNT 11.2 K/uL (4.8-10.8)
--- NOTE | 2017-05-28 06:52 | PN ---
DATE: 05/27/2017 TIME OF EVALUATION: 07:15 a.m. NEUROLOGICAL PROBLEM: Acute (left MCA dominant hemisphere) stroke manifesting with dense right hemiplegia with left lateral gaze. PHYSICAL EXAMINATION: VITAL SIGNS: Blood pressure 134/78, mean arterial pressure of 96, respiratory rate 18, temperature afebrile. NEUROLOGIC: The patient responds verbally, trying to speak, could not able to speak out. Significant motor aphasia. Not responding to visual threat on his right side. Tone increased, right side with hemiplegia. There is hyperreflexia on the right side. Left side was trace. Both plantars are upgoing. Responds to pain symmetrically on both sides. WORKUP: CT of the head repeat which confirmed with my clinical examination of left MCA stroke. ASSESSMENT AND PLAN: The patient is on hydration and keeping the mean arterial pressure around 90 to 100. Her head end is elevated. The patient is on nasogastric tube with medication and feeding. The patient should continue deep venous thrombosis prophylaxis and antiplatelets as recommended with angiotension receptor blockers and statin. The patient is requested to have MRI of the brain once the questionnaire is filled. The request has been followed. The patient also requested to have a transesophageal echocardiogram and followed by [facility]. Manav Contreras MD
--- NOTE | 2017-05-28 07:56 | CP.PCM.PN ---
<Miroslava Chappell - Last Filed: 05/28/17 14:20> Subjective - Date & Time of Evaluation Date of Evaluation: 05/28/17 Time of Evaluation: 08:00 - Subjective Subjective: PGY2 GI note for Dr. Rojas Patient seen and examined at bedside. Nursing reports patient was afebrile and had no acute events overnight. Patient tolerating NGT feeds @ 45cc/hr with minimal residual. Patient is making urine but has not had a BM yet. Patient seems slightly less responsive than yesterday. Remains globally aphasic. ROS unobtainable secondary to clinical condition. Objective - Vital Signs/Intake and Output Vital Signs (last 24 hours): Temp Pulse Resp BP Pulse Ox 98.7 F 87 20 114/65 95 05/27/17 23:10 05/27/17 23:10 05/27/17 23:10 05/27/17 23:10 05/27/17 23:10 Intake and Output: 05/28/17 05/28/17 06:59 18:59 Intake Total 1095 Output Total 375 Balance 720 - Medications Medications: Current Medications Aspirin (Aspirin Chewable) 81 mg PO DAILY [facility] Last Admin: 05/27/17 09:59 Dose: 81 mg Docusate Sodium (Colace) 100 mg PO DAILY [facility] Last Admin: 05/27/17 10:10 Dose: Not Given Enoxaparin Sodium (Lovenox) 30 mg SC Q12 [facility] Last Admin: 05/27/17 22:48 Dose: 30 mg Sodium Chloride (Sodium Chloride 0.9%) 1,000 mls @ 40 mls/hr IV .Q24H [facility] Last Admin: 05/28/17 03:21 Dose: 40 mls/hr Ceftriaxone Sodium 1 gm/ (Sodium Chloride) 100 mls @ 100 mls/hr IVPB Q24H [facility] Last Admin: 05/28/17 03:21 Dose: 100 mls/hr Metoprolol Tartrate (Lopressor) 25 mg PO BID [facility] Last Admin: 05/27/17 18:36 Dose: 25 mg Pantoprazole Sodium (Protonix Susp) 40 mg PO DAILY [facility] Last Admin: 05/27/17 09:59 Dose: 40 mg Pneumococcal Polyvalent Vaccine (Pneumovax 23 Vaccine) 0.5 ml IM .ONCE ONE Stop: 05/28/17 10:01 Rosuvastatin Calcium (Crestor) 20 mg PO HS [facility] Last Admin: 05/27/17 22:47 Dose: 20 mg Tobramycin/Dexamethasone (Tobradex 0.3%-0.1% Opht Oint) 0 appl OU QID [facility] - Labs Labs: 05/28/17 06:17 05/27/17 07:06 PT 11.9 SECONDS (9.7-12.2) 05/26/17 02:06 INR 1.1 05/26/17 02:06 APTT 33 SECONDS (21-34) 05/26/17 02:06 - Constitutional Appears: Chronically Ill - Head Exam Head Exam: ATRAUMATIC, NORMOCEPHALIC - Eye Exam Eye Exam: absent: Conjunctival injection, Scleral icterus Additional comments: left lateral gaze - ENT Exam ENT Exam: Mucous Membranes Dry Additional comments: NGT in place at 45cc/hr - Respiratory Exam Respiratory Exam: NORMAL BREATHING PATTERN. absent: Accessory Muscle Use, Respiratory Distress - Cardiovascular Exam Cardiovascular Exam: +S1, +S2. absent: Bradycardia, Tachycardia - GI/Abdominal Exam GI & Abdominal Exam: Soft. absent: Firm, Guarding, Rigid, Tenderness, Organomegaly - Neurological Exam Neurological Exam: Alert. absent: Awake, Oriented x3 Additional comments: aphasic with right sided weakness - Psychiatric Exam Additional comments: unable to assess - Skin Skin Exam: Dry, Intact Assessment and Plan - Assessment and Plan (Free Text) Assessment: 87 year old male PMHx HTN, dysplipidemia, scleroderma, GERD, blindness, "spinal infx" presented to ED on 05/26 for AMS and inability to move right side of body. 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 GI consulted for PEG placement 1. AMS - acute CVA (involving L MCA) 2. HTN 3. Scleroderma 4 GERD 5. Hyperlipidemia 6. Dysphagia 7. Paroxysmal atrial fibrillation Plan: - Patient on NGT feeds of Lucerna 1.5 at 45cc/hr tolerating with minimal residual - Temporary Guardian Brennan contacted and consent obtained for PEG placement in the AM tomorrow. Telephone consent obtained with two nursing witnessed. - Brennan - Continue care as per primary, neurology, and cardiology- will f/u reccs Discussed with Dr. Bob Chappell PGY2 <El Rojas Y - Last Filed: 05/28/17 17:43> Objective - Vital Signs/Intake and Output Vital Signs (last 24 hours): Temp Pulse Resp BP Pulse Ox 97.8 F 73 18 126/74 94 L 05/28/17 15:21 05/28/17 15:30 05/28/17 15:21 05/28/17 15:21 05/28/17 15:21 Intake and Output: 05/28/17 05/28/17 06:59 18:59 Intake Total 1095 860 Output Total 375 200 Balance 720 660 - Medications Medications: Current Medications Aspirin (Aspirin Chewable) 81 mg PO DAILY [facility] Last Admin: 05/28/17 10:55 Dose: 81 mg Docusate Sodium (Colace) 100 mg PO DAILY [facility] Last Admin: 05/28/17 10:55 Dose: 100 mg Enoxaparin Sodium (Lovenox) 30 mg SC Q12 [facility] Last Admin: 05/28/17 10:55 Dose: 30 mg Sodium Chloride (Sodium Chloride 0.9%) 1,000 mls @ 40 mls/hr IV .Q24H [facility] Last Admin: 05/28/17 14:34 Dose: Not Given Ceftriaxone Sodium 1 gm/ (Sodium Chloride) 100 mls @ 100 mls/hr IVPB Q24H [facility] Last Admin: 05/28/17 03:21 Dose: 100 mls/hr Metoprolol Tartrate (Lopressor) 25 mg PO BID [facility] Last Admin: 05/28/17 10:55 Dose: 25 mg Pantoprazole Sodium (Protonix Susp) 40 mg PO DAILY [facility] Last Admin: 05/28/17 10:55 Dose: 40 mg Rosuvastatin Calcium (Crestor) 20 mg PO HS [facility] Last Admin: 05/27/17 22:47 Dose: 20 mg Tobramycin/Dexamethasone (Tobradex 0.3%-0.1% Opht Oint) 0 appl OU QID [facility] Last Admin: 05/28/17 13:46 Dose: Not Given - Labs Labs: 05/28/17 06:17 05/28/17 06:17 PT 11.9 SECONDS (9.7-12.2) 05/26/17 02:06 INR 1.1 05/26/17 02:06 APTT 33 SECONDS (21-34) 05/26/17 02:06 Attending/Attestation - Attestation I have personally seen and examined this patient.: Yes I have fully participated in the care of the patient.: Yes I have reviewed all pertinent clinical information, including history, physical exam and plan: Yes Notes (Text): 05/28/17 17:40 I have seen and examined patient with GI fellow and district medical examiner. No acute events overnight, though he appears more lethargic and less responsive today compared to yesterday. There is no reported abdominal pain, nausea, vomiting. He is tolerating NGT feeding without difficulty. HTN Hyperlipidemia Scleroderma GERD Acute CVA with involvement of L MCA Dysphagia, AMS - Continue with NGT feeding as tolerated - Appreciate cardiology evaluation, patient cleared for endoscopic procedure - Follow up neurology recommendations, repeat CT imaging ordered - Consent for PEG obtained via court appointed guardian, will plan for procedure tomorrow to provide ongoing nutritional support. NPO after midnight.
[2017-05-28 08:09] LABS: ALBUMIN 3.4 g/dL (3.5-5.0); ALT/SGPT 37 U/L (21-72); AST/SGOT 29 U/L (17-59); BLOOD UREA NITROGEN 30 mg/dL (9-20); CALCIUM 8.3 mg/dl (8.6-10.4); GFR AFRICAN-AMERICAN > 60; GFR NON-AFRICAN AMERICAN 58
--- NOTE | 2017-05-28 08:35 | PN ---
DATE: 05/28/2017 TIME OF EVALUATION: 07:00 a.m. NEUROLOGICAL PROBLEM: Dominant hemispheric stroke, MCA territory manifesting with global aphasia and right hemiplegia with left lateral gaze preponderance. PHYSICAL EXAMINATION: VITAL SIGNS: Blood pressure 114/65, mean arterial pressure of 81, respiratory rate 18, temperature 98.7, pulse rate 87, regular. Monitor showed some evidence of SVT. The patient is globally aphasic. This speech is somewhat worsened than yesterday's exam. Yesterday's exam is somewhere how Broca's aphasia at present. The patient is globally aphasic. Still left lateral gaze preponderance, right nasolabial fold flattened, poor gag and right-sided hemiplegia. ASSESSMENT AND PLAN: The patient did have left MCA territory ischemic process. The nature of the neurological examination is worsened than yesterday. Cardiology followup is appreciated. Echocardiogram findings are noted. The patient definitely needs VERÓNICA to further localizing the thromboembologenesis for his cryptogenic stroke. This would help for further prognosis and the treatment point of the view, though he is 87 and bedridden at present. The patient's condition had been discussed with the nurse. I also scheduled him to have CT of the head to assess the stroke process to compare with my previous exam. The patient will be followed closely with you. Manav Contreras MD
--- NOTE | 2017-05-28 09:11 | CT ---
PROCEDURE: CT HEAD WITHOUT CONTRAST. HISTORY: assess the process of mca stroke COMPARISON: Unenhanced head CT 05/26/2017. TECHNIQUE: Axial computed tomography images were obtained through the head/brain without intravenous contrast. Radiation dose: Total exam DLP = 950.15 mGy-cm. This CT exam was performed using one or more of the following dose reduction techniques: Automated exposure control, adjustment of the mA and/or kV according to patient size, and/or use of iterative reconstruction technique. FINDINGS: HEMORRHAGE: No intracranial hemorrhage. BRAIN: Edema pattern has increased at the left basal ganglia and bunn radiata excluding the caudate lobe and is not well appreciated within the mid to posterior left temporal lobe with partial effacement of local sulci appreciated. No midline shift. Some limited effacement of the left lateral ventricle body and frontal horn is likely. No interval edema involving the right cerebral hemisphere or the posterior fossa contents. Diffuse cerebral atrophy chronic microangiopathy are reiterated. VENTRICLES: No hydrocephalus. CALVARIUM: Unremarkable. PARANASAL SINUSES: Unremarkable as visualized. No significant inflammatory changes. MASTOID AIR CELLS: Unremarkable as visualized. No inflammatory changes. OTHER FINDINGS: Nasogastric tube identified entering through the left naries and left nasopharynx. IMPRESSION: MCA infarct in evolution involving the left basal ganglia and bunn radiata which are increased in edema somewhat. Interval edema is now identified involving the left temporal lobe mid to posterior segment with partial effacement of local sulci appreciated. No acute intracranial hemorrhage or midline shift appreciable. Continued clinical and CT follow-up are advised.
[2017-05-28] MEDS ORDERED: Pneumococcal 23-Valent Vaccine IM ONE (10:00)
[2017-05-28] MEDS ORDERED: Influenza Vaccine 60 mcg/0.5 mL SYR (4YR UP) IM ONE (10:00)
[2017-05-28] MEDS: Enoxaparin 30 mg Syringe SC SCH ×2 (10:55→21:50)
[2017-05-28] MEDS: Pantoprazole 40 mg Susp UD PO SCH (10:55)
--- NOTE | 2017-05-28 11:02 | PN ---
DATE: SUBJECTIVE: I saw Jc resting comfortably in bed. There is an NG tube with PEG tube feedings running. He is alert. He does open his eyes a little bit, they are very crusty. I will put him on some TobraDex eyedrops 2 drops 4 times a day for 5 days. He is not talking. He is currently on aspirin, Colace, Crestor, Lopressor, Lovenox, Protonix, Rocephin, IV fluids, and now TobraDex eyedrops for his conjunctivitis. His eyes are open, but they are crusted. PHYSICAL EXAMINATION: VITAL SIGNS: He has a 98.7 temp, 87 pulse, 114/65 blood pressure, 20 respiratory rate, 95% O2 sat on room air. HEENT: His head is atraumatic, normocephalic, but the eyes are both crusted Throat is moist. NECK: Supple. HEART: Regular rate. LUNGS: Decreased breath sounds, but clear. ABDOMEN: Soft. EXTREMITIES: No edema. He cannot use his right arm, it is completely flaccid. LABORATORY DATA: His white count is 11.2, it was as high as 15.6. He is on Rocephin. Hemoglobin 13.7, hematocrit 40.1, platelets 267. 131 sodium, potassium 4.1, BUN 23, creatinine 1.1, GFR is greater than 60, sugar is 108, calcium is 8.8, total bili is 0.4, AST is 31, ALT is 34, alk phos is 110, total protein 7.1. ASSESSMENT AND PLAN: He is being seen by Neurology, Cardiology. There is a consult for Gastroenterology for a feeding tube. Chest x-ray showed no acute infiltrate. He was seen by Neurology. Continue hydration, nasogastric tube feedings, antiplatelets. There is an MRI requested by Cardiology and Gastroenterology. He is here for stroke, right-sided weakness. Also, eyedrops now for conjunctivitis. Jean Carlos Talavera DO [facility]
[2017-05-28] MEDS: Tobramycin/Dexamethasone OPHT OINT OU SCH ×4 (13:41→21:51)
--- NOTE | 2017-05-28 21:44 | CARD ---
APPROVED REPORT EKG Measurement Heart [id number] <Conclusion> Sinus tachycardia Right bundle branch block Septal infarct, age undetermined Abnormal ECG
--- NOTE | 2017-05-28 22:27 | CARD ---
APPROVED REPORT EXAM: Two-dimensional and M-mode echocardiogram with Doppler and color Doppler. Other Information Quality : GoodRhythm : INDICATION Atrial Fibrillation CARDIO EMBOLIC RISK FACTORS Hypertension Hyperlipidemia 2D DIMENSIONS IVSd1.5 (0.7-1.1cm)LVDd3.4 (3.9-5.9cm) PWd1.3 (0.7-1.1cm)LVDs2.4 (2.5-4.0cm) FS (%) 29.4 %LVEF (%)57.5 (>50%) M-Mode DIMENSIONS Left Atrium (MM)3.39 (2.5-4.0cm)Aortic Root3.43 (2.2-3.7cm) Aortic Cusp Exc.1.70 (1.5-2.0cm) Mitral Valve MV E Ybjtzmct63.1cm/sMV A Yzzqzpmk48.4cm/sE/A ratio0.6 TDI E/Lateral E'0.0E/Medial E'0.0 Tricuspid Valve TR Peak Bslsrgiy131uy/sTR Peak Gr.[id number] <Conclusion> Left ventricle: thickness: normal; size: normal; overall ejection fraction: 65%: diastolic filling pressures: normal Mitral valve: annulus: normal: leaflets: normal: excursion: normal; no significant trans-mitral gradient: no significant incompetence: left atrium: normal Aortic valve: leaflets: thickened and calcified: excursion: mild restriction; indeterminate trans-aortic gradient: No significant incompetence: aortic root: normal; if aortic valve area is clinically warranted would obtain a VERÓNICA Right sided Structures:grossly joseph; Intra-cardiac hemodynamics: pulmonary systolic pressures: 32mmHg; central venous pressures: normal No pericardial effusion
[2017-05-29 06:35] LABS: HEMOGLOBIN 13.6 g/dL (12.0-18.0); MEAN CELL VOLUME 95.8 fL (80.0-94.0); MEAN CORPUSCULAR HGB CONC 35.5 g/dL (33.0-37.0); MEAN PLATELET VOLUME 7.7 fL (7.2-11.7); RBC 4.01 Mil/uL (4.40-5.90); RED CELL DISTRIBUTION WIDTH 14.8 % (11.5-14.5); WHITE BLOOD COUNT 10.5 K/uL (4.8-10.8)
[2017-05-29 06:51] LABS: INR 1.1; PROTHROMBIN TIME 12.8 SECONDS (9.7-12.2)
[2017-05-29 07:44] LABS: ALBUMIN 3.4 g/dL (3.5-5.0); ALT/SGPT 39 U/L (21-72); AST/SGOT 32 U/L (17-59); BLOOD UREA NITROGEN 26 mg/dL (9-20); GFR AFRICAN-AMERICAN > 60; GFR NON-AFRICAN AMERICAN > 60
[2017-05-29] MEDS: Enoxaparin 30 mg Syringe SC SCH ×2 (09:23→21:51)
[2017-05-29] MEDS: Pantoprazole 40 mg Susp UD PO SCH (09:25)
[2017-05-29] MEDS: Bacitracin 500 Units/gm Oint Foilpak UD TOP SCH ×2 (09:45→21:50)
--- NOTE | 2017-05-29 09:48 | EEG ---
DATE: 05/28/2017 This is a 16-channel electroencephalogram of awake and lethargic adult. During the study, photic stimulation was performed. Hyperventilation was not performed. The resting electroencephalogram consists of 20 to 30 microvolts diffuse 5 to 6 Hz theta activity seen at parietal and occipital leads. Visual activities continuously noted without any changes. Some movement artifact contaminated the background rhythm intermittently. The photic stimulation did not evoke driving response noted at 2 to 20 Hz. IMPRESSION: This is abnormal electroencephalogram because of persistent slowing throughout the record suggestive of bilateral cerebral dysfunction. This is probably secondary to metabolic, vascular or degenerative process. Please correlate the findings with the neurological and the radiological studies. Manav Contreras MD cc:
[2017-05-29] MEDS: Tobramycin/Dexamethasone OPHT OINT OU SCH ×4 (10:00→21:00)
[2017-05-29] MEDS: Sodium Chloride 0.9% 1,000 ML IV SCH (10:10)
--- NOTE | 2017-05-29 11:36 | PN ---
DATE: SUBJECTIVE: Jc Rosales is resting comfortably in bed this morning. Again, NG tube is in place and is infusing nutrition. He is alert. His eyes are open. He is still nonverbal, in no acute distress. PHYSICAL EXAMINATION: VITAL SIGNS: He has 97.7 temp, 81 pulse, 148/84 blood pressure, 20 respiratory rate, 94% O2 sat on room air. HEENT: Head is atraumatic, normocephalic. HEART: Regular rate. LUNGS: Decreased breath sounds, but clear. ABDOMEN: Soft, nontender, positive bowel sounds. EXTREMITIES: No edema. His right arm is flaccid. MEDICATIONS: He is currently on aspirin, ceftriaxone, Colace, Crestor, Lopressor, Lovenox, Protonix, IV fluids and TobraDex eyedrops. His eyes are looking better. LABORATORY DATA: He has 11.2 white count this morning, 13.7 hemoglobin, and 267 platelets. INR is 1.1. He has 133 sodium, potassium 4.2, BUN 30, creatinine 1.2. Last blood sugar was 117, calcium is 8.3. Total bili is 0.3, AST is 29, ALT is 37, alkaline phosphatase 110, total protein 6.7. I understand he is going to go for a PEG tube today with GI. he has been seen by GI, Neurology, Cardiology. I believe eventually to have problem with placement for him and that will be taken care of by social media editor and Case Management. Today, he is going to go for a PEG tube placement as he had a cerebrovascular accident with right-sided weakness. Jean Carlos Talavera DO [facility]
--- NOTE | 2017-05-29 12:32 | PN ---
DATE: 05/29/2017 NEUROLOGICAL PROBLEM: Embolic stroke dominant hemisphere, manifesting with dense right hemiplegia with global aphasia. PHYSICAL EXAMINATION: VITAL SIGNS: Blood pressure 148/84, mean arterial pressure of 105, respiratory rate 18, temperature 97.7, and pulse rate 81. NEUROLOGIC: The patient is arousable. Left lateral gaze preponderance is somewhat decreased today. Still right side neglect, manifestation of right homonymous hemianopsia, dense hemiplegia again noted. Case is discussed with Dr. Gates earlier as I strongly recommend her to have a transesophageal echocardiogram to find the source for her stroke, which could help us to treat him further, either anti-platelets or long-term anticoagulation. I strongly recommend him to have VERÓNICA prior to the discharge. The patient is also scheduled to have a PEG today. The patient's condition had been discussed with family independence case manager this morning. Manav Contreras MD
[2017-05-29] MEDS ORDERED: Etomidate 20 mg/10ml Inj IV ONE (12:36)
--- NOTE | 2017-05-29 13:28 | CP.PCM.PN ---
Subjective - Date & Time of Evaluation Date of Evaluation: 05/29/17 Time of Evaluation: 13:24 - Subjective Subjective: Patient seen and examined, resting in bed comfortably. Endoscopic gastrostomy tube placement attempted, unsuccessful. Objective - Vital Signs/Intake and Output Vital Signs (last 24 hours): Temp Pulse Resp BP Pulse Ox 97.9 F 74 18 162/89 H 98 05/29/17 12:34 05/29/17 12:34 05/29/17 12:34 05/29/17 12:34 05/29/17 12:34 Intake and Output: 05/29/17 05/29/17 06:59 18:59 Intake Total 860 0 Output Total 450 Balance 410 0 - Medications Medications: Current Medications Aspirin (Aspirin Chewable) 81 mg PO DAILY [facility] Last Admin: 05/29/17 09:23 Dose: Not Given Bacitracin (Bacitracin) 1 ea TOP BID [facility]S [facility]CLUDE 234 BEDS AT [facility] Last Admin: 05/29/17 09:45 Dose: 1 ea Docusate Sodium (Colace) 100 mg PO DAILY [facility] 234 [facility]S [facility] Last Admin: 05/29/17 09:23 Dose: Not Given Enoxaparin Sodium (Lovenox) 30 mg SC Q12 [facility] 234 [facility] Last Admin: 05/29/17 09:23 Dose: Not Given Sodium Chloride (Sodium Chloride 0.9%) 1,000 mls @ 40 mls/hr IV .Q24H [facility] 234 [facility]S AT [facility] Last Admin: 05/29/17 10:10 Dose: 40 mls/hr Ceftriaxone Sodium 1 gm/ (Sodium Chloride) 100 mls @ 100 mls/hr IVPB Q24H [facility] 234 B[facility]S AT [facility] Last Admin: 05/29/17 03:44 Dose: 100 mls/hr Lactated Ringer's (Lactated Ringer's 500ml) 500 mls @ 75 mls/hr IV .Q6H40M [facility]CLUDE 234 BEDS AT [facility] Metoprolol Tartrate (Lopressor) 25 mg PO BID [facility] 234 B[facility]S AT [facility] Last Admin: 05/29/17 09:28 Dose: Not Given Pantoprazole Sodium (Protonix Susp) 40 mg PO DAILY [facility] 234 [facility]S [facility] Last Admin: 05/29/17 09:25 Dose: Not Given Rosuvastatin Calcium (Crestor) 20 mg PO HS [facility] 234 B[facility]S [facility] Last Admin: 05/27/17 22:47 Dose: 20 mg Tobramycin/Dexamethasone (Tobradex 0.3%-0.1% Opht Oint) 0 appl OU QID [facility] 234 B[facility]S AT [facility] Last Admin: 05/29/17 10:00 Dose: 0.5 inch - Labs Labs: 05/29/17 06:30 05/29/17 06:30 PT 12.8 SECONDS (9.7-12.2) H 05/29/17 06:30 INR 1.1 05/29/17 06:30 APTT 33 SECONDS (21-34) 05/26/17 02:06 Assessment and Plan - Assessment and Plan (Free Text) Assessment: HTN Hyperlipidemia GERD Acute CVA with L MCA involvement Dysphagia Plan: - Inadequate endoscopic transillumination and 1:1 during EGD today, therefore gastrostomy placement was not attempted - NGT replaced - IR consulted for attempted placement - Follow up neurology recommendations - No further planned GI intervention, will sign off case. Please reconsult as necessary thank you.
[2017-05-29] MEDS ORDERED: Iohexol 240 (50 ml) PO ONE (14:45)
[2017-05-29] MEDS: Lactated Ringer's 500 ML IV SCH ×2 (14:50→21:53)
--- NOTE | 2017-05-29 22:43 | CT ---
EXAM: CT Abdomen and Pelvis Without Intravenous Contrast EXAM DATE/TIME: 05/29/2017 2:21 PM CLINICAL HISTORY: 87 years old, male; Pain and condition or disease; Gi device placement or management; Other: Evaluation prior feeding tube; Abdominal pain; Additional info: Anatomy eval prior to ir guided feeding tube TECHNIQUE: Axial computed tomography images of the abdomen and pelvis without intravenous contrast. All CT scans at this facility use one or more dose reduction techniques, viz.: automated exposure control; ma/kV adjustment per patient size (including targeted exams where dose is matched to indication; i.e. head); or iterative reconstruction technique. Coronal and sagittal reformatted images were created and reviewed. COMPARISON: There are no prior studies for comparison. FINDINGS: Artifacts: Streak artifact degrades image quality. Motion artifact degrades image quality. Lower thorax: Heart size is at the upper limits of normal. There are coronary artery calcifications. Lung bases are hyperinflated There is patchy airspace disease in lung bases left greater than right. There is elevation of left diaphragm. ABDOMEN: Liver: unremarkable Gallbladder and bile ducts: unremarkable Pancreas: unremarkable Spleen: unremarkable Adrenals: There is bilateral adrenal thickening with nodularity. Kidneys and ureters: unremarkable Stomach and bowel: A nasogastric tube is in place. Tip of the tube is in the stomach. The stomach is almost completely empty. Stomach is posterior to multiple small bowel loops and the splenic flexure. Rotation is normal. Proximal small bowel is mildly distended with air. There is air and contrast in mid and distal small bowel. There is contrast in the terminal ileum. Appendix is not visualized. There is no pericecal inflammation. Colon is incompletely distended which limits evaluation. There is diverticulosis. Appendix: See stomach and bowel PELVIS: Bladder: unremarkable Reproductive: Prostate is enlarged. Seminal vesicles are not optimally demonstrated. ABDOMEN and PELVIS: Intraperitoneal space: There is no free air or free fluid. Bones/joints: Bony structures are osteopenic. There are degenerative changes. There is a right hip prosthesis. There is partial ankylosis of the right sacroiliac joint. There is fusion of the L2 and L3 vertebral bodies. There is loss of height of lower thoracic vertebral bodies. Soft tissues: unremarkable Vasculature: There are calcified phleboliths. There are vascular calcifications. Lymph nodes: There is no pathologic adenopathy. IMPRESSION: Elevation of the left diaphragm; airspace disease, atelectasis and/or infiltrate at the lung bases left greater than right; limited evaluation of solid viscera due to lack of contrast, no acute solid visceral abnormality identified; no bowel obstruction; diverticulosis without CT findings of diverticulitis collapsed a nasogastric tube Images need to be reviewed by the physician responsible for possible feeding tube placement ;
[2017-05-30] MEDS: Lactated Ringer's 500 ML IV SCH ×3 (03:26→08:45)
[2017-05-30 08:00] LABS: HEMOGLOBIN 13.8 g/dL (12.0-18.0); MEAN CELL VOLUME 96.9 fL (80.0-94.0); MEAN CORPUSCULAR HEMOGLOBIN 33.6 pg (27.0-31.0); MEAN CORPUSCULAR HGB CONC 34.7 g/dL (33.0-37.0); MEAN PLATELET VOLUME 8.9 fL (7.2-11.7); RBC 4.11 Mil/uL (4.40-5.90); RED CELL DISTRIBUTION WIDTH 14.3 % (11.5-14.5); WHITE BLOOD COUNT 10.2 K/uL (4.8-10.8)
--- NOTE | 2017-05-30 08:13 | PN ---
DATE: 05/30/2017 TIME OF EVALUATION: 07:35 a.m. NEUROLOGICAL PROBLEM: Dominant hemispheric stroke manifesting with global aphasia, right hemiplegia. PHYSICAL EXAMINATION: VITAL SIGNS: Blood pressure 147/88, mean arterial pressure of 107, respiratory rate 18, temperature 98.1, pulse rate 75. NEUROLOGICAL: The patient's neurological examination which is unchanged as stated above. ASSESSMENT AND PLAN: The patient is on antiplatelets. He is having a significant bulbar dysfunction. Awaiting for percutaneous endoscopic gastrostomy insertion. Also requested transesophageal echocardiogram, is still pending. The patient will be followed closely with you while he is in the hospital. Manav Contreras MD
[2017-05-30 08:14] LABS: ALBUMIN 3.5 g/dL (3.5-5.0); ALT/SGPT 35 U/L (21-72); AST/SGOT 31 U/L (17-59); BLOOD UREA NITROGEN 20 mg/dL (9-20); CALCIUM 8.2 mg/dl (8.6-10.4); GFR AFRICAN-AMERICAN > 60; GFR NON-AFRICAN AMERICAN > 60
--- NOTE | 2017-05-30 09:43 | PCM.IRP ---
History of Present Illness - History of Present Illness History of Present Illness: IR consulted for percutaneous gastrostomy tube placement. CT scan reviewed from last evening. Pt's anatomy is not suitable for a perc. gastrostomy placement. The colon is between skin and stomach which is also partially intrathoracic. Objective - Vital Signs/Intake and Output Vital Signs (last 24 hours): Vital Signs - 24 hr 05/29/17 05/29/17 05/29/17 11:20 12:34 13:25 Temperature 97.9 F 97.9 F 98.9 F Pulse Rate 74 74 89 Respiratory 18 18 15 Rate Blood Pressure 162/89 H 162/89 H 143/94 H O2 Sat by Pulse 98 98 96 Oximetry 05/29/17 05/29/17 05/29/17 13:40 13:55 14:00 Temperature 97.1 F L Pulse Rate 77 79 78 Respiratory 13 12 17 Rate Blood Pressure 132/82 124/78 145/72 O2 Sat by Pulse 99 97 97 Oximetry 05/29/17 05/29/17 05/29/17 14:45 15:19 15:30 Temperature 97.7 F Pulse Rate 79 68 86 Respiratory 18 Rate Blood Pressure 131/86 O2 Sat by Pulse 97 Oximetry 05/29/17 05/29/17 05/30/17 19:00 23:08 01:50 Temperature 98.1 F Pulse Rate 77 73 Respiratory 20 Rate Blood Pressure 138/80 147/88 O2 Sat by Pulse 95 Oximetry 05/30/17 05/30/17 05/30/17 04:08 08:00 08:24 Temperature 97.4 F L Pulse Rate 75 84 84 Respiratory 20 Rate Blood Pressure 107/73 O2 Sat by Pulse 97 Oximetry Intake and Output (last 12 hours): Intake & Output 05/29/17 05/30/17 05/30/17 18:59 06:59 18:59 Intake Total 800 Output Total 300 1150 Balance 500 -1150 Intake: IV 500 Intake, IV Amount 200 Right Antecubital 200 Other 100 Output: Urine 300 1150 Condom 300 1150 - Medications Medications: Current Medications Aspirin (Aspirin Chewable) 81 mg PO DAILY [facility] Last Admin: 05/29/17 09:23 Dose: Not Given Bacitracin (Bacitracin) 1 ea TOP BID [facility] Last Admin: 05/29/17 21:50 Dose: 1 ea Docusate Sodium (Colace) 100 mg PO DAILY [facility] Last Admin: 05/29/17 09:23 Dose: Not Given Enoxaparin Sodium (Lovenox) 30 mg SC Q12 [facility] Last Admin: 05/29/17 21:51 Dose: 30 mg Sodium Chloride (Sodium Chloride 0.9%) 1,000 mls @ 40 mls/hr IV .Q24H [facility] Last Admin: 05/29/17 10:10 Dose: 40 mls/hr Ceftriaxone Sodium 1 gm/ (Sodium Chloride) 100 mls @ 100 mls/hr IVPB Q24H [facility] Last Admin: 05/30/17 03:20 Dose: 100 mls/hr Lactated Ringer's (Lactated Ringer's 500ml) 500 mls @ 75 mls/hr IV .Q6H40M [facility] Last Admin: 05/30/17 06:03 Dose: 75 mls/hr Metoprolol Tartrate (Lopressor) 25 mg PO BID [facility] Last Admin: 05/29/17 19:00 Dose: 25 mg Pantoprazole Sodium (Protonix Susp) 40 mg PO DAILY [facility] Last Admin: 05/29/17 09:25 Dose: Not Given Rosuvastatin Calcium (Crestor) 20 mg PO HS [facility] Last Admin: 05/29/17 21:50 Dose: 20 mg Tobramycin/Dexamethasone (Tobradex 0.3%-0.1% Opht Oint) 0 appl OU QID [facility] Last Admin: 05/29/17 21:00 Dose: 1 inch - Labs Labs (last 24 hours): Laboratory Results - last 24 hr 05/29/17 05/29/17 05/29/17 11:11 17:01 21:20 WBC RBC Hgb Hct MCV MCH MCHC RDW Plt Count MPV Sodium Potassium Chloride Carbon Dioxide Anion Gap BUN Creatinine Est GFR ( Amer) Est GFR (Non-Af Amer) POC Glucose (mg/dL) 90 96 94 Random Glucose Calcium Total Bilirubin AST ALT Alkaline Phosphatase Total Protein Albumin Globulin Albumin/Globulin Ratio 05/30/17 05/30/17 05/30/17 06:17 07:25 07:25 WBC 10.2 RBC 4.11 L Hgb 13.8 Hct 39.8 MCV 96.9 H MCH 33.6 H MCHC 34.7 RDW 14.3 Plt Count 281 MPV 8.9 Sodium 130 L Potassium 3.8 Chloride 97 L Carbon Dioxide 26 Anion Gap 11 BUN 20 Creatinine 1.0 Est GFR ( Amer) > 60 Est GFR (Non-Af Amer) > 60 POC Glucose (mg/dL) 102 Random Glucose 104 Calcium 8.2 L Total Bilirubin 0.6 AST 31 ALT 35 Alkaline Phosphatase 124 Total Protein 7.1 Albumin 3.5 Globulin 3.6 Albumin/Globulin Ratio 1.0
[2017-05-30] MEDS: Enoxaparin 30 mg Syringe SC SCH ×2 (09:55→22:05)
[2017-05-30] MEDS: Pantoprazole 40 mg Susp UD PO SCH (09:55)
[2017-05-30] MEDS: Tobramycin/Dexamethasone OPHT OINT OU SCH ×4 (09:56→22:00)
[2017-05-30] MEDS: Bacitracin 500 Units/gm Oint Foilpak UD TOP SCH ×2 (09:56→17:04)
--- NOTE | 2017-05-30 11:03 | PN ---
DATE: SUBJECTIVE: Jc is resting comfortably in bed at [facility], they could not do the feeding tube yesterday, and he needs to go forward again with Interventional Radiology, I believe, as this is too difficult to place. Not much change since yesterday. PHYSICAL EXAMINATION: VITAL SIGNS: He has a 98.1 temperature, 77 pulse, 147/88 blood pressure, 20 respiratory rate, and 95% O2 sat on room air. HEENT: His eyes are open. He is nonverbal. His left side is flaccid. Head is atraumatic and normocephalic. HEART: Regular rate. LUNGS: Decreased breath sounds, but clear. ABDOMEN: Soft. EXTREMITIES: Mildly contracted, the right side is weak. MEDICATIONS: Aspirin, bacitracin, Rocephin, Colace, Crestor, Lactated Ringer's, Lopressor, Lovenox, Protonix, IV fluids and TobraDex eyedrops. LABORATORY DATA: He has a 132 sodium, potassium 4.2, BUN 26, creatinine 1, GFR is greater than 60, sugar 104, calcium is 8, total bilirubin is 0.3, AST is 32, ALT is 39, alkaline phosphatase 116, total protein is 6.7. White count is down to 10.5, the best it has been; 13.6 hemoglobin, 38.5 hematocrit, 257 platelets. INR is 1.1. ASSESSMENT AND PLAN: placement at a long-term care facility, maybe back at [facility] where he came from. We will continue aggressive treatment and care. Hopefully, we will continue with the feeding tube intervention, check his labs tomorrow. He is here for cerebrovascular accident and right-sided weakness. Jean Carlos Talavera DO SIL[facility]INA
--- NOTE | 2017-05-30 11:16 | CP.PCM.CON ---
History of Present Illness - History of Present Illness History of Present Illness: 87 year old male with past medical history of dementia, resident in [facility], presents to the hospital with altered mental status from baseline and right sided hemiplegia. Patient is unable to provide history or review of systems as he is awake but not alert or oriented, information obtained from chart. Guardian: Tk Gonzales Past medical history: HTN, dysplipidemia, scleroderma, GERD, blindness, "spinal infx" Past surgical history: as per chart prostate surgery (unknown procedure), hip replacement Allergies: NKDA Medications: see chart Social History: as per chart denies tobacco and drug use with occasional drinking Family History: as per chart noncontributory Review of Systems - Review of Systems Systems not reviewed;Unavailable: Altered Mental Status Past Patient History - Infectious Disease Hx of Infectious Diseases: None - Tetanus Immunizations Tetanus Immunization: Unknown - Past Social History Smoking Status: Unknown If Ever Smoked - CARDIAC Hx Cardiac Disorders: Yes - PULMONARY Hx Respiratory Disorders: No - NEUROLOGICAL Other/Comment: syncopal episode 22 yrs ago - HEENT 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", right ear hearing loss - RENAL Hx Chronic Kidney Disease: No - ENDOCRINE/METABOLIC Hx Endocrine Disorders: No - HEMATOLOGICAL/ONCOLOGICAL Hx Blood Disorders: No Hx Cancer: (denies prostate ca) - INTEGUMENTARY Hx Dermatological Problems: No - MUSCULOSKELETAL/RHEUMATOLOGICAL Hx Falls: Yes - GASTROINTESTINAL Other/Comment: esophagitis, gastritis, gas, uses stool softeners - GENITOURINARY/GYNECOLOGICAL Hx Prostate Problems: Yes (denies ca, had prostate sx 2 months ago) Other/Comment: dribbling since prostate sx when coughing or laughing - PSYCHIATRIC Hx Depression: No Hx Substance Use: No - SURGICAL HISTORY Hx Surgeries: No Other/Comment: left hip replacement 2000 - ANESTHESIA Hx Anesthesia: Yes Hx Anesthesia Reactions: No Meds Allergies/Adverse Reactions: Allergies Allergy/AdvReac Type Severity Reaction Status Date / Time No Known Allergies Allergy Verified 05/26/17 01:41 - Medications Medications: Current Medications Aspirin (Aspirin Chewable) 81 mg PO DAILY [facility] Last Admin: 05/30/17 09:56 Dose: 81 mg Bacitracin (Bacitracin) 1 ea TOP BID [facility] Last Admin: 05/30/17 09:56 Dose: 1 ea Docusate Sodium (Colace) 100 mg PO DAILY [facility] Last Admin: 05/30/17 09:55 Dose: 100 mg Enoxaparin Sodium (Lovenox) 30 mg SC Q12 [facility] Last Admin: 05/30/17 09:55 Dose: 30 mg Sodium Chloride (Sodium Chloride 0.9%) 1,000 mls @ 40 mls/hr IV .Q24H [facility] Last Admin: 05/29/17 10:10 Dose: 40 mls/hr Ceftriaxone Sodium 1 gm/ (Sodium Chloride) 100 mls @ 100 mls/hr IVPB Q24H [facility] Last Admin: 05/30/17 03:20 Dose: 100 mls/hr Lactated Ringer's (Lactated Ringer's 500ml) 500 mls @ 75 mls/hr IV .Q6H40M [facility] Last Admin: 05/30/17 06:03 Dose: 75 mls/hr Metoprolol Tartrate (Lopressor) 25 mg PO BID [facility] Last Admin: 05/30/17 09:55 Dose: 25 mg Pantoprazole Sodium (Protonix Susp) 40 mg PO DAILY [facility] Last Admin: 05/30/17 09:55 Dose: 40 mg Rosuvastatin Calcium (Crestor) 20 mg PO HS [facility] Last Admin: 05/29/17 21:50 Dose: 20 mg Tobramycin/Dexamethasone (Tobradex 0.3%-0.1% Opht Oint) 0 appl OU QID [facility] Last Admin: 05/30/17 09:56 Dose: 1 inch Physical Exam - Constitutional Appears: Cachectic, Chronically Ill - Head Exam Head Exam: ATRAUMATIC, NORMAL INSPECTION - Eye Exam Eye Exam: EOMI, Normal appearance - ENT Exam Additional comments: NG tube - Respiratory Exam Respiratory Exam: NORMAL BREATHING PATTERN - Cardiovascular Exam Cardiovascular Exam: +S1, +S2 - GI/Abdominal Exam GI & Abdominal Exam: Normal Bowel Sounds, Soft. absent: Distended, Firm, Guarding, Tenderness - Skin Skin Exam: Dry, Normal Color, Warm Results - Vital Signs Recent Vital Signs: Last Vital Signs Temp 97.4 F L 05/30/17 08:24 Pulse 84 05/30/17 08:24 Resp 20 05/30/17 08:24 BP 110/76 05/30/17 09:55 Pulse Ox 97 05/30/17 08:24 - Labs Result Diagrams: 05/30/17 07:25 05/30/17 07:25 Labs: Laboratory Results - last 24 hr 05/29/17 05/29/17 05/29/17 11:11 17:01 21:20 WBC RBC Hgb Hct MCV MCH MCHC RDW Plt Count MPV Sodium Potassium Chloride Carbon Dioxide Anion Gap BUN Creatinine Est GFR ( Amer) Est GFR (Non-Af Amer) POC Glucose (mg/dL) 90 96 94 Random Glucose Calcium Total Bilirubin AST ALT Alkaline Phosphatase Total Protein Albumin Globulin Albumin/Globulin Ratio 05/30/17 05/30/17 05/30/17 06:17 07:25 07:25 WBC 10.2 RBC 4.11 L Hgb 13.8 Hct 39.8 MCV 96.9 H MCH 33.6 H MCHC 34.7 RDW 14.3 Plt Count 281 MPV 8.9 Sodium 130 L Potassium 3.8 Chloride 97 L Carbon Dioxide 26 Anion Gap 11 BUN 20 Creatinine 1.0 Est GFR ( Amer) > 60 Est GFR (Non-Af Amer) > 60 POC Glucose (mg/dL) 102 Random Glucose 104 Calcium 8.2 L Total Bilirubin 0.6 AST 31 ALT 35 Alkaline Phosphatase 124 Total Protein 7.1 Albumin 3.5 Globulin 3.6 Albumin/Globulin Ratio 1.0 Assessment & Plan - Assessment and Plan (Free Text) Assessment: 87 year old male with past medical history of dementia, resident in [facility], presents to the hospital with altered mental status from baseline and right sided hemiplegia. Surgery consulted for failed PEG placement. - Abdomen/Pelvis CT (05/29): Elevation of the left diaphragm; airspace disease, atelectasis and/or infiltrate at the lung bases left greater than right; limited evaluation of solid viscera due to lack of contrast, no acute solid visceral abnormality identified; no bowel obstruction; diverticulosis without CT findings of diverticulitis collapsed a nasogastric tube - Gastrostomy tube is not emergent at this time - Continue feeds through NGT - Will schedule PEG placement for Friday06/03/17 Jennifer Mehta PGY-1
--- NOTE | 2017-05-30 12:36 | RAD ---
PROCEDURE: Radiographs of the neck (soft tissue). HISTORY: checking metal for MRI clearance COMPARISON: None. TECHNIQUE: Frontal and Lateral Radiographs of the neck, optimized for soft tissue visualization. FINDINGS: SOFT TISSUES: Limited examination. No radiopaque foreign body within the cervical soft tissues. No prevertebral soft tissue swelling. CERVICAL SPINE: Narrowing of all of the visualized intervertebral disc spaces. Failure to visualize the 7th cervical vertebra in the lateral view. Grade 1 anterolisthesis at C4-5, likely degenerative. Nasogastric tube noted. OTHER FINDINGS: None. IMPRESSION: No radiopaque foreign body identified. Extensive degenerative disc disease.
[2017-05-31 07:35] LABS: HEMOGLOBIN 12.5 g/dL (12.0-18.0); MEAN CELL VOLUME 96.9 fL (80.0-94.0); MEAN CORPUSCULAR HEMOGLOBIN 33.7 pg (27.0-31.0); MEAN CORPUSCULAR HGB CONC 34.7 g/dL (33.0-37.0); MEAN PLATELET VOLUME 8.4 fL (7.2-11.7); RBC 3.71 Mil/uL (4.40-5.90); RED CELL DISTRIBUTION WIDTH 14.4 % (11.5-14.5); WHITE BLOOD COUNT 10.4 K/uL (4.8-10.8)
--- NOTE | 2017-05-31 07:39 | CP.PCM.PN ---
Subjective - Date & Time of Evaluation Date of Evaluation: 05/31/17 Time of Evaluation: 07:38 - Subjective Subjective: Gen Surg: Dr Tierney Pt S&E. NAEO. No apparent distress. Condition unchanged, Receiving tube feeds via NGT. Plan for gastrostomy tube placement friday Objective - Vital Signs/Intake and Output Vital Signs (last 24 hours): Temp Pulse Resp BP Pulse Ox 98.7 F 88 20 130/75 96 05/30/17 23:15 05/31/17 04:29 05/30/17 23:15 05/30/17 23:15 05/30/17 23:15 Intake and Output: 05/31/17 05/31/17 06:59 18:59 Intake Total 1560 Output Total 875 Balance 685 - Medications Medications: Current Medications Aspirin (Aspirin Chewable) 81 mg PO DAILY [facility] Last Admin: 05/30/17 09:56 Dose: 81 mg Bacitracin (Bacitracin) 1 ea TOP BID [facility] Last Admin: 05/30/17 17:04 Dose: 1 ea Docusate Sodium (Colace) 100 mg PO DAILY [facility] Last Admin: 05/30/17 09:55 Dose: 100 mg Enoxaparin Sodium (Lovenox) 30 mg SC Q12 [facility] Last Admin: 05/30/17 22:05 Dose: 30 mg Sodium Chloride (Sodium Chloride 0.9%) 1,000 mls @ 40 mls/hr IV .Q24H [facility] Last Admin: 05/29/17 10:10 Dose: 40 mls/hr Ceftriaxone Sodium 1 gm/ (Sodium Chloride) 100 mls @ 100 mls/hr IVPB Q24H [facility] Last Admin: 05/31/17 02:47 Dose: 100 mls/hr Lactated Ringer's (Lactated Ringer's 500ml) 500 mls @ 75 mls/hr IV .Q6H40M [facility] Last Admin: 05/30/17 08:45 Dose: Not Given Metoprolol Tartrate (Lopressor) 25 mg PO BID [facility] Last Admin: 05/30/17 17:04 Dose: 25 mg Pantoprazole Sodium (Protonix Susp) 40 mg PO DAILY [facility] Last Admin: 05/30/17 09:55 Dose: 40 mg Rosuvastatin Calcium (Crestor) 20 mg PO HS [facility] Last Admin: 05/30/17 22:05 Dose: 20 mg Tobramycin/Dexamethasone (Tobradex 0.3%-0.1% Opht Oint) 0 appl OU QID [facility] Last Admin: 05/30/17 17:05 Dose: 1 inch - Labs Labs: 05/30/17 07:25 05/30/17 07:25 PT 12.8 SECONDS (9.7-12.2) H 05/29/17 06:30 INR 1.1 05/29/17 06:30 APTT 33 SECONDS (21-34) 05/26/17 02:06 - Constitutional Appears: No Acute Distress - Respiratory Exam Respiratory Exam: absent: Accessory Muscle Use, Respiratory Distress - GI/Abdominal Exam GI & Abdominal Exam: Soft. absent: Distended, Firm, Tenderness
[2017-05-31 08:19] LABS: ALT/SGPT 32 U/L (21-72); AST/SGOT 26 U/L (17-59); BLOOD UREA NITROGEN 20 mg/dL (9-20); GFR AFRICAN-AMERICAN > 60; GFR NON-AFRICAN AMERICAN > 60
[2017-05-31] MEDS: Sodium Chloride 0.9% 1,000 ML IV SCH ×2 (10:43→10:45)
[2017-05-31] MEDS: Pantoprazole 40 mg Susp UD PO SCH (10:43)
[2017-05-31] MEDS: Bacitracin 500 Units/gm Oint Foilpak UD TOP SCH ×2 (10:43→17:21)
[2017-05-31] MEDS: Tobramycin/Dexamethasone OPHT OINT OU SCH ×4 (10:44→21:33)
[2017-05-31] MEDS: Enoxaparin 30 mg Syringe SC SCH ×2 (10:56→21:33)
--- NOTE | 2017-05-31 12:40 | PN ---
DATE: SUBJECTIVE: Mr. Greene is resting comfortably in bed. He is nonverbal. He is alert. He has got an NG tube in place. He has a failed PEG tube placement. We are trying to get a feeding tube put in him. I believe Interventional Radiology was consulted, now Surgery is consulted for feeding tube; otherwise, he is fairly stable. PHYSICAL EXAMINATION: VITAL SIGNS: He has a 98.7 temperature, 75 pulse, 130/75 blood pressure, 20 respiratory rate, 96% O2 sat on room air. HEENT: Head is atraumatic, normocephalic. NG tube in place. HEART: Regular rate. LUNGS: Decreased breath sound, but clear. ABDOMEN: Soft. EXTREMITIES: Contracted. The right-sided weakness secondary to a stroke. LABORATORY DATA: He has 130 sodium, potassium 3.8, BUN 20, creatinine is 1, GFR is greater than 60, sugar is 104, calcium is 8.2, total bili 0.6, AST is 31, ALT is 35, alkaline phosphatase 124, total protein 7.1. White count is 10.4, hemoglobin 12.5, hematocrit 36, platelets 256. He is in no acute distress noted. We will check his labs tomorrow, waiting for a placement of a feeding tube subacute rehab for permanent placement in a retirement. This is a progress note on Jc Rosales, who is here with a new stroke and right-sided weakness. He has got aphagia, dysphagia, and waiting for a feeding tube probably by Surgery. Jean Carlos Talavera DO SIL[facility]INA
[2017-06-01] MEDS: Lactated Ringer's 500 ML IV SCH (00:45)
--- NOTE | 2017-06-01 07:50 | CP.PCM.PCO ---
Physician Communication Note - Physician Communication Note Physician Communication Note: plan for J-tube friday - no change in pt status
[2017-06-01 08:42] LABS: ALBUMIN 3.4 g/dL (3.5-5.0); ALT/SGPT 27 U/L (21-72); AST/SGOT 38 U/L (17-59); BLOOD UREA NITROGEN 18 mg/dL (9-20); CALCIUM 8.1 mg/dl (8.6-10.4); GFR AFRICAN-AMERICAN > 60; GFR NON-AFRICAN AMERICAN > 60
[2017-06-01] MEDS: Sodium Chloride 0.9% 1,000 ML IV SCH (10:57)
[2017-06-01] MEDS: Enoxaparin 30 mg Syringe SC SCH ×2 (10:58→21:42)
[2017-06-01] MEDS: Bacitracin 500 Units/gm Oint Foilpak UD TOP SCH ×2 (10:58→17:52)
[2017-06-01] MEDS: Pantoprazole 40 mg Susp UD PO SCH (10:58)
[2017-06-01] MEDS: Tobramycin/Dexamethasone OPHT OINT OU SCH ×4 (11:00→21:43)
--- NOTE | 2017-06-01 13:09 | CP.PCM.PN ---
Subjective - Date & Time of Evaluation Date of Evaluation: 06/01/17 Time of Evaluation: 13:06 - Subjective Subjective: The pt is asleep, barely arousable Objective - Vital Signs/Intake and Output Vital Signs (last 24 hours): Temp Pulse Resp BP Pulse Ox 97.5 F L 69 18 110/66 96 06/01/17 07:45 06/01/17 10:56 06/01/17 07:45 06/01/17 10:57 06/01/17 07:45 Intake and Output: 06/01/17 06/01/17 06:59 18:59 Intake Total 940 Output Total 250 Balance 690 - Medications Medications: Current Medications Aspirin (Aspirin Chewable) 81 mg PO DAILY [facility] Last Admin: 06/01/17 10:58 Dose: 81 mg Bacitracin (Bacitracin) 1 ea TOP BID [facility] Last Admin: 06/01/17 10:58 Dose: 1 ea Docusate Sodium (Colace) 100 mg PO DAILY [facility] Last Admin: 06/01/17 10:57 Dose: 100 mg Enoxaparin Sodium (Lovenox) 30 mg SC Q12 [facility] Last Admin: 06/01/17 10:58 Dose: 30 mg Sodium Chloride (Sodium Chloride 0.9%) 1,000 mls @ 40 mls/hr IV .Q24H [facility] Last Admin: 06/01/17 10:57 Dose: 40 mls/hr Ceftriaxone Sodium 1 gm/ (Sodium Chloride) 100 mls @ 100 mls/hr IVPB Q24H [facility] Last Admin: 06/01/17 04:14 Dose: 100 mls/hr Lactated Ringer's (Lactated Ringer's 500ml) 500 mls @ 75 mls/hr IV .Q6H40M [facility] Last Admin: 06/01/17 00:45 Dose: Not Given Metoprolol Tartrate (Lopressor) 25 mg PO BID [facility] Last Admin: 06/01/17 10:57 Dose: 25 mg Pantoprazole Sodium (Protonix Susp) 40 mg PO DAILY [facility] Last Admin: 06/01/17 10:58 Dose: 40 mg Rosuvastatin Calcium (Crestor) 20 mg PO HS [facility] Last Admin: 05/31/17 21:33 Dose: 20 mg Tobramycin/Dexamethasone (Tobradex 0.3%-0.1% Opht Oint) 0 appl OU QID [facility] Last Admin: 06/01/17 11:00 Dose: 1 inch - Labs Labs: 05/31/17 07:26 06/01/17 07:49 PT 12.8 SECONDS (9.7-12.2) H 05/29/17 06:30 INR 1.1 05/29/17 06:30 APTT 33 SECONDS (21-34) 05/26/17 02:06 - Constitutional Appears: Older Than Stated Age, Chronically Ill - Eye Exam Eye Exam: EOMI Pupil Exam: NORMAL ACCOMODATION - ENT Exam ENT Exam: Mucous Membranes Moist - Respiratory Exam Respiratory Exam: Clear to Ausculation Bilateral - Cardiovascular Exam Cardiovascular Exam: REGULAR RHYTHM - GI/Abdominal Exam GI & Abdominal Exam: Normal Bowel Sounds - Exam External exam: NORMAL EXTERNAL EXAM Assessment and Plan - Assessment and Plan (Free Text) Assessment: 1. I spoke with Dr Alba, of EP, who reviewed ECG tracings, and affirms that tachyarhythmia was afib. Anticoagulation is advised. pt has had no recurrence. Pt is to have peg. After procedure, Dr Contreras will start eliquis. There are no plas for VERÓNICA at this time. I spoke with Dr Contreras personally.
--- NOTE | 2017-06-01 14:38 | PN ---
DATE: SUBJECTIVE: He is resting comfortably in bed. The NG tube is in place and is infusing. No changes in the past 24 hours. PHYSICAL EXAMINATION VITAL SIGNS: He has a 97.5 temperature, 68 pulse, 96% O2 sat on 2 liters, 102/66 blood pressure. GENERAL: He is comfortable. No changes in physical exam. He has 2 tries to do a feeding tube and they could not be done. We are heading for Friday with Dr. Tierney, Surgery for feeding tube. He had a sodium of 132, potassium is 4.1, BUN is 18, creatinine is 0.5. He is in the hospital for CVA with right-sided weakness, sepsis, failed PEG placement. He is blind. He has had scleroderma, change in mentation, dysphagia. Hopefully, we will get the feeding tube placed on Friday. We will continue with current treatment and plan and same meds. Jean Carlos Talavera DO
--- NOTE | 2017-06-02 06:36 | CP.PCM.PN ---
Subjective - Date & Time of Evaluation Date of Evaluation: 06/02/17 Time of Evaluation: 06:35 - Subjective Subjective: General Surgery progress note for Dr. Tierney Patient seen and examined this Am at bedside no acute events overnight. Patient is avaerbal no changes in clinical status. Plan for surgical feeding tube tomorrow. Objective - Vital Signs/Intake and Output Vital Signs (last 24 hours): Temp Pulse Resp BP Pulse Ox 98.2 F 68 20 133/75 95 06/01/17 23:05 06/01/17 23:05 06/01/17 23:05 06/01/17 23:05 06/01/17 23:05 Intake and Output: 06/01/17 06/02/17 18:59 06:59 Intake Total 710 Output Total 350 250 Balance 360 -250 - Medications Medications: Current Medications Aspirin (Aspirin Chewable) 81 mg PO DAILY [facility] Last Admin: 06/01/17 10:58 Dose: 81 mg Bacitracin (Bacitracin) 1 ea TOP BID [facility] Last Admin: 06/01/17 17:52 Dose: 1 ea Docusate Sodium (Colace) 100 mg PO DAILY [facility] Last Admin: 06/01/17 10:57 Dose: 100 mg Enoxaparin Sodium (Lovenox) 30 mg SC Q12 [facility] Last Admin: 06/01/17 21:42 Dose: 30 mg Sodium Chloride (Sodium Chloride 0.9%) 1,000 mls @ 40 mls/hr IV .Q24H [facility] Last Admin: 06/01/17 10:57 Dose: 40 mls/hr Metoprolol Tartrate (Lopressor) 25 mg PO BID [facility] Last Admin: 06/01/17 10:57 Dose: 25 mg Pantoprazole Sodium (Protonix Susp) 40 mg PO DAILY [facility] Last Admin: 06/01/17 10:58 Dose: 40 mg Rosuvastatin Calcium (Crestor) 20 mg PO HS [facility] Last Admin: 06/01/17 21:43 Dose: 20 mg Tobramycin/Dexamethasone (Tobradex 0.3%-0.1% Opht Oint) 0 appl OU QID [facility] Last Admin: 06/01/17 21:43 Dose: 1 inch - Labs Labs: 05/31/17 07:26 06/01/17 07:49 PT 12.8 SECONDS (9.7-12.2) H 05/29/17 06:30 INR 1.1 05/29/17 06:30 APTT 33 SECONDS (21-34) 05/26/17 02:06 - Constitutional Appears: Non-toxic, No Acute Distress - Head Exam Head Exam: ATRAUMATIC, NORMOCEPHALIC - ENT Exam Additional comments: NGT feeds running - Respiratory Exam Respiratory Exam: NORMAL BREATHING PATTERN - Cardiovascular Exam Cardiovascular Exam: REGULAR RHYTHM, +S1, +S2 - GI/Abdominal Exam GI & Abdominal Exam: Soft. absent: Firm, Guarding, Rigid, Tenderness - Neurological Exam Neurological Exam: Alert, Awake - Skin Skin Exam: Dry, Intact Assessment and Plan - Assessment and Plan (Free Text) Assessment: 87M with CVA NPO after midnight OR for surgical jejunostomy tube tomorrow D/W Dr. Tierney
[2017-06-02 07:33] LABS: HEMOGLOBIN 12.4 g/dL (12.0-18.0); MEAN CELL VOLUME 97.8 fL (80.0-94.0); MEAN CORPUSCULAR HEMOGLOBIN 33.9 pg (27.0-31.0); MEAN CORPUSCULAR HGB CONC 34.7 g/dL (33.0-37.0); MEAN PLATELET VOLUME 8.6 fL (7.2-11.7); RBC 3.65 Mil/uL (4.40-5.90); RED CELL DISTRIBUTION WIDTH 14.2 % (11.5-14.5); WHITE BLOOD COUNT 9.6 K/uL (4.8-10.8)
[2017-06-02 07:52] LABS: BLOOD UREA NITROGEN 18 mg/dL (9-20); CALCIUM 7.8 mg/dl (8.6-10.4); GFR AFRICAN-AMERICAN > 60; GFR NON-AFRICAN AMERICAN > 60
[2017-06-02] MEDS: Bacitracin 500 Units/gm Oint Foilpak UD TOP SCH ×2 (11:27→18:01)
[2017-06-02] MEDS: Pantoprazole 40 mg Susp UD PO SCH (11:27)
[2017-06-02] MEDS: Sodium Chloride 0.9% 1,000 ML IV SCH (11:28)
[2017-06-02] MEDS: Tobramycin/Dexamethasone OPHT OINT OU SCH ×4 (11:28→21:49)
--- NOTE | 2017-06-02 12:11 | CP.PCM.PN ---
Subjective - Date & Time of Evaluation Date of Evaluation: 06/02/17 Time of Evaluation: 12:07 - Subjective Subjective: While asleep, pt had mobitz I av block with resulting 3.2 second pause. beta armida held. Pt is alert, non verbal Objective - Vital Signs/Intake and Output Vital Signs (last 24 hours): Temp Pulse Resp BP Pulse Ox 97 F L 68 20 158/88 H 97 06/02/17 08:00 06/02/17 08:00 06/02/17 08:00 06/02/17 08:00 06/02/17 08:00 Intake and Output: 06/02/17 06/02/17 06:59 18:59 Intake Total 620 Output Total 250 Balance 370 - Medications Medications: Current Medications Aspirin (Aspirin Chewable) 81 mg PO DAILY [facility] Last Admin: 06/02/17 11:27 Dose: 81 mg Bacitracin (Bacitracin) 1 ea TOP BID [facility] Last Admin: 06/02/17 11:27 Dose: 1 ea Docusate Sodium (Colace) 100 mg PO DAILY [facility] Last Admin: 06/02/17 11:28 Dose: Not Given Enoxaparin Sodium (Lovenox) 30 mg SC Q12 [facility] Last Admin: 06/01/17 21:42 Dose: 30 mg Sodium Chloride (Sodium Chloride 0.9%) 1,000 mls @ 40 mls/hr IV .Q24H [facility] Last Admin: 06/02/17 11:28 Dose: 40 mls/hr Metoprolol Tartrate (Lopressor) 25 mg PO BID [facility] Last Admin: 06/01/17 10:57 Dose: 25 mg Pantoprazole Sodium (Protonix Susp) 40 mg PO DAILY [facility] Last Admin: 06/02/17 11:27 Dose: 40 mg Rosuvastatin Calcium (Crestor) 20 mg PO HS [facility] Last Admin: 06/01/17 21:43 Dose: 20 mg Tobramycin/Dexamethasone (Tobradex 0.3%-0.1% Opht Oint) 0 appl OU QID [facility] Last Admin: 06/02/17 11:28 Dose: 1 inch - Labs Labs: 06/02/17 07:13 06/02/17 07:13 PT 12.8 SECONDS (9.7-12.2) H 05/29/17 06:30 INR 1.1 05/29/17 06:30 APTT 33 SECONDS (21-34) 05/26/17 02:06 - Constitutional Appears: Chronically Ill - Head Exam Head Exam: ATRAUMATIC - ENT Exam ENT Exam: Mucous Membranes Moist - Neck Exam Neck Exam: Normal Inspection - Respiratory Exam Respiratory Exam: Clear to Ausculation Bilateral - Cardiovascular Exam Cardiovascular Exam: REGULAR RHYTHM - GI/Abdominal Exam GI & Abdominal Exam: Normal Bowel Sounds - Exam External exam: NORMAL EXTERNAL EXAM - Extremities Exam Extremities Exam: Normal Inspection - Back Exam Back Exam: NORMAL INSPECTION - Neurological Exam Neurological Exam: Alert Additional comments: rightward gaze, non verbal - Psychiatric Exam Psychiatric exam: Flat Affect - Skin Skin Exam: Normal Color Assessment and Plan - Assessment and Plan (Free Text) Assessment: 1. CVA and episodic atrial fib: anticoagulation advised after peg and when risk of hemorrhagic transformation has subsided. 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 Will discuss with Dr Alba of EP for his input . Beta armida held
--- NOTE | 2017-06-02 12:19 | PN ---
DATE: SUBJECTIVE: He is resting comfortably in bed. The NG tube is in place. He is getting NG tube feedings. No acute distress. The plan is for tomorrow to go for PEG tube placement with Surgery. LABORATORY DATA: He has sodium of 133, potassium 4.3, BUN 18, creatinine 0.9. White count 9.6, 12.4 hemoglobin, 35.7 hematocrit with 265 platelets. PHYSICAL EXAMINATION: VITAL SIGNS: He has a 97.5 temperature, 68 pulse, 96% O2 sat, 112/66 blood pressure. We will get a CBC, SMA-7, and INR tomorrow morning before his procedure. He did very well. He is here for a CVA, right weakness, sepsis, failed placement for PEG tube x2. He also is blind, has scleroderma. Jean Carlos Talavera DO
[2017-06-03 06:51] LABS: HEMOGLOBIN 13.1 g/dL (12.0-18.0); MEAN CELL VOLUME 98.2 fL (80.0-94.0); MEAN CORPUSCULAR HEMOGLOBIN 33.8 pg (27.0-31.0); MEAN CORPUSCULAR HGB CONC 34.4 g/dL (33.0-37.0); MEAN PLATELET VOLUME 8.5 fL (7.2-11.7); RBC 3.86 Mil/uL (4.40-5.90); RED CELL DISTRIBUTION WIDTH 14.4 % (11.5-14.5); WHITE BLOOD COUNT 11.7 K/uL (4.8-10.8)
[2017-06-03 06:55] LABS: INR 1.2; PROTHROMBIN TIME 13.1 SECONDS (9.7-12.2)
[2017-06-03 07:02] LABS: BLOOD UREA NITROGEN 16 mg/dL (9-20); CALCIUM 8.4 mg/dl (8.6-10.4); GFR AFRICAN-AMERICAN > 60; GFR NON-AFRICAN AMERICAN > 60
--- NOTE | 2017-06-03 07:56 | PN ---
DATE: 06/03/2017 NEUROLOGICAL PROBLEM: Dominant hemispheric stroke with global aphasia. PHYSICAL EXAMINATION VITAL SIGNS: Blood pressure 115/77, mean arterial pressure of 89, respiratory rate of 18, temperature 98.4, pulse rate is 70. ASSESSMENT AND PLAN: The patient is lethargic, on nasogastric tube feeding. Again, global aphasic and right hemiplegia was pronounced. Case has been extensively discussed with Dr. Gates. The patient does have atrial fibrillation. He should be on anticoagulation. Following discussion and presenting condition, the patient should be placed on low dose Eliquis, which can be started after PEG insertion from tomorrow. The patient will be followed closely with you. Manav Contreras MD
[2017-06-03] MEDS: Pantoprazole 40 mg Susp UD PO SCH (09:05)
--- NOTE | 2017-06-03 10:35 | PN ---
DATE: SUBJECTIVE: I saw Jc resting comfortably in bed, NG tube in place. He is sleeping. He is not allergic and can go for a feeding tube, I understand, with surgery today. He had 2 tries. They could not do it earlier last week. He has an 81 aspirin, bacitracin, Colace, Crestor, Lopressor, and Lovenox are on hold. Protonix, IV fluids, TobraDex eye drops. He will stop the TobraDex eye drops. PHYSICAL EXAMINATION: VITAL SIGNS: He has a 98.4 temp, 70 pulse, 115/77 blood pressure, 20 respiratory rate, 97% O2 sat on 2 L cannula. HEENT: Head is atraumatic, normocephalic. NG tube in place. HEART: Regular rate. LUNGS: Decreased breath sounds, but clear. ABDOMEN: Soft. EXTREMITIES: No edema, but mildly contracted. LABORATORY DATA: He has an 11.7 white count, it is the highest it has been, 13.1 hemoglobin, 38.0 hematocrit with a 302 platelets. INR is 1.1. He has a 133 sodium, potassium 4.3, BUN is 18, creatinine 0.9, 60, sugar is 108, calcium is 7.8. He was given calcium replacement. ASSESSMENT AND PLAN: Hopefully, he will do well today. He was seen by Cardiology, Surgery, Interventional Radiology. Beta blockers held because of the Mobitz type 1 atrioventricular block with a 3.2 second pause, which is new. I will continue after the surgery as per Cardiology. Hopefully, he will do well today with the procedure. History of cerebrovascular accident, right-sided weakness, scleroderma, blind, Jean Carlos Talavera DO MTDWilliam
[2017-06-03] MEDS: Tobramycin/Dexamethasone OPHT OINT OU SCH ×3 (10:53→21:45)
[2017-06-03] MEDS: Bacitracin 500 Units/gm Oint Foilpak UD TOP SCH ×2 (10:54→17:37)
--- NOTE | 2017-06-03 10:57 | CP.PCM.PN ---
Subjective - Date & Time of Evaluation Date of Evaluation: 06/03/17 Time of Evaluation: 10:55 - Subjective Subjective: I discussed Murray Willard seen during sleep with Dr Alba and he said that it was find to continue beta armida, and that pauses under 5 secs with Murray Willard during sleep was to be observed, no therapy. It is recommended to continue beta armida as before for atrial tach and episodic atrial fibrillation. Once peg is in and Dr Contreras clears pt, anticoagulation is advised fo episodic atrial fib. Objective - Vital Signs/Intake and Output Vital Signs (last 24 hours): Temp Pulse Resp BP Pulse Ox 98.9 F 79 20 112/71 95 06/03/17 07:00 06/03/17 07:00 06/03/17 07:00 06/03/17 07:00 06/03/17 07:00 Intake and Output: 06/03/17 06/03/17 06:59 18:59 Output Total 1300 Balance -1300 - Medications Medications: Current Medications Aspirin (Aspirin Chewable) 81 mg PO DAILY [facility] Last Admin: 06/03/17 09:04 Dose: Not Given Bacitracin (Bacitracin) 1 ea TOP BID [facility] Last Admin: 06/03/17 10:54 Dose: 1 ea Docusate Sodium (Colace) 100 mg PO DAILY [facility] Last Admin: 06/03/17 09:04 Dose: Not Given Enoxaparin Sodium (Lovenox) 30 mg SC Q12 [facility] Last Admin: 06/01/17 21:42 Dose: 30 mg Sodium Chloride (Sodium Chloride 0.9%) 1,000 mls @ 40 mls/hr IV .Q24H [facility] Last Admin: 06/02/17 11:28 Dose: 40 mls/hr Metoprolol Tartrate (Lopressor) 25 mg PO BID [facility] Last Admin: 06/01/17 10:57 Dose: 25 mg Pantoprazole Sodium (Protonix Susp) 40 mg PO DAILY [facility] Last Admin: 06/03/17 09:05 Dose: Not Given Rosuvastatin Calcium (Crestor) 20 mg PO HS [facility] Last Admin: 06/02/17 21:48 Dose: 20 mg Tobramycin/Dexamethasone (Tobradex 0.3%-0.1% Opht Oint) 0 appl OU QID [facility] Last Admin: 06/03/17 10:53 Dose: 1 inch - Labs Labs: 06/03/17 06:32 06/03/17 06:32 PT 13.1 SECONDS (9.7-12.2) H 06/03/17 06:32 INR 1.2 06/03/17 06:32 APTT 30 SECONDS (21-34) 06/03/17 06:32
[2017-06-03] MEDS ORDERED: Lactated Ringer's 1,000 ML IV ONE ×3 (12:30→14:15)
[2017-06-03] MEDS ORDERED: ceFAZolin IV 1 gm in Dextrose 1 GM/50 ML BAG IVPB ONE (12:39)
[2017-06-03] MEDS ORDERED: Propofol 10 mg/ml Inj (20 ML) ONE (12:40)
[2017-06-03] MEDS ORDERED: HYDROmorphone 0.5 mg/0.5 ml ISec IVP PRN (13:49)
--- NOTE | 2017-06-03 14:12 | PCM.SURG1 ---
Surgeon's Initial Post Op Note - Surgeon's Notes Surgeon: Dr. Tierney Garnishment Specialist: Ramila Garcia PGY2 Type of Anesthesia: General Endo Pre-Operative Diagnosis: dysphagia Operative Findings: gastric atrophy Post-Operative Diagnosis: Same Operation Performed: Open gastrostomy tube insertion. Specimen/Specimens Removed: None Estimated Blood Loss: EBL {In ML}: 5 Blood Products Given: N/A Drains Used: No Drains Post-Op Condition: Fair Date of Surgery/Procedure: 06/03/17 Time of Surgery/Procedure: 14:12
[2017-06-03] MEDS ORDERED: Enalaprilat 2.5 MG/2 ML IV PRN (17:46)
--- NOTE | 2017-06-03 21:50 | OP ---
PROCEDURE DATE: 06/03/2017 PREOPERATIVE DIAGNOSES: Malnutrition, previous stroke. SURGERY CARRIED OUT: Placement of #24 gastrostomy tube. SURGEON: Peterson Tierney Jr., MD PULL OUT OPERATOR: Dr. Ramila Garcia. TYPE OF ANESTHESIA: General anesthesia. ANESTHESIA ADMINISTERED BY: Dr. Santana. INDICATIONS: The patient is an elderly man who is unable to swallow. He has had multiple tests done including attempts made at a PEG, attempts made at a CAT scan guided G-tube, all of which could not be done for technical reasons primarily the bowel being in the way. OPERATIVE FINDINGS: A 24-Moroccan G-tube was successfully placed into the stomach, although it was noted to be quite small as it was retracted up below the ribcage. DESCRIPTION OF PROCEDURE: The patient was given general anesthesia and intravenous antibiotics. A midline incision was carried out. Limited exploration was done. The stomach tube was identified. We then identified the area and mobilized the area. We then placed 2 purse-string sutures tying on different ends, placed the G-tube into the stomach. This went in uneventfully. Its balloon was inflated. It was tacked to the abdominal wall. It was checked again. It was in good position. Blood loss for the procedure was less than 10 mL. The abdominal wound was closed with running sutures of Novafil and PDS. The skin was closed with skin clips. Secured to the skin with sutures. The operation carried out was placement of gastrostomy tube. Intravenous antibiotics have been given. Peterson Tierney Jr., MD
[2017-06-04 01:30] VITALS: RESP 20
--- NOTE | 2017-06-04 07:47 | PN ---
DATE: 06/04/2017 NEUROLOGICAL PROBLEM: Dominant hemispheric stroke with aphasia, status post PEG placement. PHYSICAL EXAMINATION: VITAL SIGNS: Blood pressure 167/94; mean arterial pressure 118; pulse rate 86, irregular; temperature 98.4. NEUROLOGIC: The patient is lethargic, responds to verbally on calling his first name, opening his eyes. He cannot follow any commands. Moves his left side spontaneously. The rest of the examination which is unchanged to compare with my yesterday's exam. The patient is comfortably lying down in the bed. ASSESSMENT AND PLAN: The patient has to be on long-term anticoagulation considering his middle cerebral artery large territory stroke. Anticoagulation can be started with low dosage and 2 to 3 weeks from now, the dose can be bumped up to the therapeutic level. The patient is requested to be on Eliquis 2.5 mg twice a day. The patient can continue aspirin low dose for now. When medically table, the patient can be transferred to rehabilitation or residential for further management. Manav Contreras MD
[2017-06-04] MEDS: Tobramycin/Dexamethasone OPHT OINT OU SCH ×3 (08:00→14:20)
[2017-06-04] MEDS: Pantoprazole 40 mg Susp UD PO SCH (10:48)
[2017-06-04] MEDS: Bacitracin 500 Units/gm Oint Foilpak UD TOP SCH (10:49)
[2017-06-04] MEDS: Nystatin 100,000 Units/ml Oral Susp 5 ml UD PO SCH ×2 (11:03→14:06)
--- NOTE | 2017-06-04 12:16 | PN ---
DATE: SUBJECTIVE: He finally got his feeding tube placed yesterday, which is great. He is trying to work with being fed through the PEG tube. PHYSICAL EXAMINATION GENERAL: He is not alert. He is resting comfortably in bed. VITAL SIGNS: He has 98.4 temperature, 86 pulse, 135/71 blood pressure, 20 respiratory rate, and 99% O2 sat on nasal cannula. HEENT: His head is atraumatic and normocephalic. HEART: Regular rate. LUNGS: Clear to auscultation. ABDOMEN: Soft, positive PEG tube. EXTREMITIES: Contracted, right-sided weakness from a stroke and no edema. MEDICATIONS: He is on aspirin, bacitracin, Colace, Crestor, Lopressor, Lovenox, nystatin oral swish because he has some thrush, Protonix, IV fluids, TobraDex, Toradol, and Vasotec. LABORATORY DATA: He has a 11.7 white count, 13.1 hemoglobin, 38 hematocrit, with a 302 platelets. Sodium 132, potassium 4.6, BUN 16, creatinine 1, GFR is greater than 60, and last blood sugar was 100. ASSESSMENT AND PLAN: He is being seen by Surgery, Cardiology, and Neurology. Now, he is going to need for placement. We are going to have to get guardianship and it will be a while cerebrovascular accident. He has got scleroderma. He is blind. He is now better with a feeding tube. Jean Carlos Talavera DO MTDWilliam
--- NOTE | 2017-06-04 12:36 | CP.PCM.PN ---
Subjective - Date & Time of Evaluation Date of Evaluation: 06/04/17 Time of Evaluation: 12:35 - Subjective Subjective: Surgery Pt s&e. Pt underwent gastrostomy tube insertion yesterday and tolerated it well. Pt is on tube feed now. Working well. Objective - Vital Signs/Intake and Output Vital Signs (last 24 hours): Temp Pulse Resp BP Pulse Ox 98.6 F 73 20 103/69 96 06/04/17 08:15 06/04/17 08:15 06/04/17 08:15 06/04/17 10:48 06/04/17 08:15 Intake and Output: 06/04/17 06/04/17 06:59 18:59 Intake Total 365 Output Total 500 Balance -135 - Medications Medications: Current Medications Apixaban (Eliquis) 2.5 mg PO BID [facility] Last Admin: 06/04/17 10:49 Dose: 2.5 mg Aspirin (Aspirin Chewable) 81 mg PO DAILY [facility] Last Admin: 06/04/17 10:48 Dose: 81 mg Bacitracin (Bacitracin) 1 ea TOP BID [facility] Last Admin: 06/04/17 10:49 Dose: 1 ea Docusate Sodium (Colace) 100 mg PO DAILY [facility] Last Admin: 06/04/17 11:03 Dose: Not Given Enalaprilat (Vasotec) 10 mg IV Q6 PRN PRN Reason: Systolic Blood Pressure Last Admin: 06/03/17 17:59 Dose: 10 mg Sodium Chloride (Sodium Chloride 0.9%) 1,000 mls @ 40 mls/hr IV .Q24H [facility] Last Admin: 06/02/17 11:28 Dose: 40 mls/hr Ketorolac Tromethamine (Toradol) 15 mg IVP Q8 [facility] Stop: 06/04/17 23:59 Last Admin: 06/04/17 05:53 Dose: 15 mg Metoprolol Tartrate (Lopressor) 25 mg PO BID [facility] Last Admin: 06/04/17 10:48 Dose: 25 mg Nystatin (Nystatin Oral Susp) 5 ml PO QID [facility] Last Admin: 06/04/17 11:03 Dose: Not Given Pantoprazole Sodium (Protonix Susp) 40 mg PO DAILY [facility] Last Admin: 06/04/17 10:48 Dose: 40 mg Rosuvastatin Calcium (Crestor) 20 mg PO HS [facility] Last Admin: 06/03/17 21:43 Dose: Not Given Tobramycin/Dexamethasone (Tobradex 0.3%-0.1% Opht Oint) 0 appl OU QID [facility] Last Admin: 06/04/17 10:47 Dose: 1 inch - Labs Labs: 06/03/17 06:32 06/03/17 06:32 PT 13.1 SECONDS (9.7-12.2) H 06/03/17 06:32 INR 1.2 06/03/17 06:32 APTT 30 SECONDS (21-34) 06/03/17 06:32 - Constitutional Appears: Confused, Chronically Ill - Head Exam Head Exam: ATRAUMATIC, NORMAL INSPECTION, NORMOCEPHALIC - Eye Exam Eye Exam: EOMI, Normal appearance, PERRL Pupil Exam: NORMAL ACCOMODATION, PERRL - ENT Exam ENT Exam: Mucous Membranes Moist, Normal Exam - Neck Exam Neck Exam: Full ROM, Normal Inspection. absent: Lymphadenopathy - Respiratory Exam Respiratory Exam: Clear to Ausculation Bilateral, NORMAL BREATHING PATTERN - Cardiovascular Exam Cardiovascular Exam: REGULAR RHYTHM, +S1, +S2. absent: Murmur - GI/Abdominal Exam GI & Abdominal Exam: Soft, Normal Bowel Sounds. absent: Distended, Firm, Guarding, Rigid, Tenderness Additional comments: Gastrostomy tube in place. Tube feed at 10cc - Extremities Exam Extremities Exam: Normal Capillary Refill. absent: Full ROM, Joint Swelling, Pedal Edema - Neurological Exam Neurological Exam: Awake. absent: Alert, Normal Gait, Oriented x3 - Skin Skin Exam: Dry, Intact, Normal Color, Warm Assessment and Plan - Assessment and Plan (Free Text) Assessment: POD 1 s/p open gastrostomy tube -Ok to tube feed. -Residual check. If more than 200cc hold feed for 1 hr and recheck. -Flush q4hr w 20cc saline and every tube feed Will DW Dr. Tierney
--- NOTE | 2017-06-04 13:21 | CP.PCM.PN ---
Subjective - Date & Time of Evaluation Date of Evaluation: 06/04/17 Time of Evaluation: 13:19 - Subjective Subjective: pt is asleep. comfortable Objective - Vital Signs/Intake and Output Vital Signs (last 24 hours): Temp Pulse Resp BP Pulse Ox 98.6 F 73 20 103/69 96 06/04/17 08:15 06/04/17 08:15 06/04/17 08:15 06/04/17 10:48 06/04/17 08:15 Intake and Output: 06/04/17 06/04/17 06:59 18:59 Intake Total 365 Output Total 500 Balance -135 - Medications Medications: Current Medications Apixaban (Eliquis) 2.5 mg PO BID [facility] Last Admin: 06/04/17 10:49 Dose: 2.5 mg Aspirin (Aspirin Chewable) 81 mg PO DAILY [facility] Last Admin: 06/04/17 10:48 Dose: 81 mg Bacitracin (Bacitracin) 1 ea TOP BID [facility] Last Admin: 06/04/17 10:49 Dose: 1 ea Docusate Sodium (Colace) 100 mg PO DAILY [facility] Last Admin: 06/04/17 11:03 Dose: Not Given Enalaprilat (Vasotec) 10 mg IV Q6 PRN PRN Reason: Systolic Blood Pressure Last Admin: 06/03/17 17:59 Dose: 10 mg Sodium Chloride (Sodium Chloride 0.9%) 1,000 mls @ 40 mls/hr IV .Q24H [facility] Last Admin: 06/02/17 11:28 Dose: 40 mls/hr Ketorolac Tromethamine (Toradol) 15 mg IVP Q8 [facility] Stop: 06/04/17 23:59 Last Admin: 06/04/17 05:53 Dose: 15 mg Metoprolol Tartrate (Lopressor) 25 mg PO BID [facility] Last Admin: 06/04/17 10:48 Dose: 25 mg Nystatin (Nystatin Oral Susp) 5 ml PO QID [facility] Last Admin: 06/04/17 11:03 Dose: Not Given Pantoprazole Sodium (Protonix Susp) 40 mg PO DAILY [facility] Last Admin: 06/04/17 10:48 Dose: 40 mg Rosuvastatin Calcium (Crestor) 20 mg PO HS [facility] Last Admin: 06/03/17 21:43 Dose: Not Given Tobramycin/Dexamethasone (Tobradex 0.3%-0.1% Opht Oint) 0 appl OU QID [facility] Last Admin: 06/04/17 10:47 Dose: 1 inch - Labs Labs: 06/03/17 06:32 06/03/17 06:32 PT 13.1 SECONDS (9.7-12.2) H 06/03/17 06:32 INR 1.2 06/03/17 06:32 APTT 30 SECONDS (21-34) 06/03/17 06:32 - Constitutional Appears: Older Than Stated Age - Head Exam Head Exam: ATRAUMATIC - ENT Exam ENT Exam: Mucous Membranes Moist - Neck Exam Neck Exam: Normal Inspection - Respiratory Exam Respiratory Exam: Clear to Ausculation Bilateral - Cardiovascular Exam Cardiovascular Exam: REGULAR RHYTHM - GI/Abdominal Exam GI & Abdominal Exam: Normal Bowel Sounds - Exam External exam: NORMAL EXTERNAL EXAM - Extremities Exam Extremities Exam: Normal Inspection - Skin Skin Exam: Normal Color Assessment and Plan - Assessment and Plan (Free Text) Assessment: 1; Atrial tachycardia, as well as episodic atrial fib. Pt is now on eliquis. Beta armida. 2. Mobitz I av block during sleep: no therapy advised.
[2017-06-04 15:46] VITALS: BP 131/72; PULSE 74; TEMP 98.1; O2SAT 97
== END 2017-06-04 17:49 | DRG 982 ==
LOC: C.ER 01:35 → SUPCPDRO 01:35 → C.6T 02:56
PROVIDERS: ADMIT Family Medicine; ATTEND Family Medicine
PROC: 3E0G76Z Introduction of Nutritional Substance into Upper GI, Via Natural or Artificial Opening (ICD-10-PCS; 2017-05-26)
PROC: 0DJ08ZZ Inspection of Upper Intestinal Tract, Via Natural or Artificial Opening Endoscopic (ICD-10-PCS; 2017-05-29)
PROC: 0DH60UZ Insertion of Feeding Device into Stomach, Open Approach (ICD-10-PCS; principal; 2017-06-03 12:30)
DX: I63.412 Cerebral infarction due to embolism of left middle cerebral artery (principal); G81.91 Hemiplegia, unspecified affecting right dominant side; E46 Unspecified protein-calorie malnutrition; I44.1 Atrioventricular block, second degree; H53.461 Homonymous bilateral field defects, right side; I48.0 Paroxysmal atrial fibrillation; I49.5 Sick sinus syndrome; M34.9 Systemic sclerosis, unspecified; I47.1 Supraventricular tachycardia; J98.11 Atelectasis; R47.01 Aphasia; R13.10 Dysphagia, unspecified; I65.21 Occlusion and stenosis of right carotid artery; I10 Essential (primary) hypertension; K29.70 Gastritis, unspecified, without bleeding; K57.32 Diverticulitis of large intestine without perforation or abscess without bleeding; F03.90 Unspecified dementia, unspecified severity, without behavioral disturbance, psychotic disturbance, mood disturbance, and anxiety; K21.9 Gastro-esophageal reflux disease without esophagitis; H10.9 Unspecified conjunctivitis; E78.2 Mixed hyperlipidemia; H91.91 Unspecified hearing loss, right ear; F10.10 Alcohol abuse, uncomplicated; H54.7 Unspecified visual loss; Z53.09 Procedure and treatment not carried out because of other contraindication; Z96.642 Presence of left artificial hip joint; Z79.01 Long term (current) use of anticoagulants; Z79.82 Long term (current) use of aspirin; Z74.01 Bed confinement status